=== PATIENT | female | born 1960 | race Caucasian/White ===

== ENCOUNTER 2016-11-27 21:22 | Emergency (ER) | payer BC ==
[2016-11-27] MEDS ORDERED: HYDROmorphone 1 MG/ML Syringe IVPUSH ONE ×2 (21:35→22:44)
[2016-11-27] MEDS ORDERED: Sodium Chloride 0.9% 1,000 ML IV ONE (21:35)
[2016-11-27] MEDS ORDERED: diphenhydrAMINE 50 MG/ML SDV IVPUSH ONE (21:36)
[2016-11-27] MEDS ORDERED: Promethazine 25 MG/ML SDV IM ONE (21:36)
--- NOTE | 2016-11-27 21:43 | EDM.PDOC ---
Addendum entered and electronically signed by Chadnni Holly PA-C 11/28/16 06:18: Agree with patient assessment, documentation and treatment plan. Original Note: ED HPI HEADACHE COMPLAINT - General Chief Complaint: Headache Stated Complaint: MIGRAINE Time Seen by Provider: 11/27/16 21:39 Source of Information: Reports: Patient History Limitations: Reports: No limitations - History of Present Illness INITIAL COMMENTS - FREE TEXT/NARRATIVE: Harmony Ferguson is a 56 year old female with a history of recurrent migraine headaches presenting to the ED with her usual type migraine headache. It started last night and has gotten progressively worse. She is nauseated and has vomited several times. It has not been responsive to her home treatments. She has pain throughout her head. No vision changes but she is light and sound sensitive. She is nauseated and dry heaving here in the ED. She has allergies to toradol but typically gets relief from dilaudid and phenergan. - Related Data Allergies/ADRs: Allergies Allergy/AdvReac Type Severity Reaction Status Date / Time amoxicillin [Amoxicillin] Allergy Rash Verified 11/27/16 21:33 codeine Allergy Abdominal Verified 11/27/16 21:33 Pain ketorolac tromethamine Allergy Itching Verified 11/27/16 21:33 [From Toradol] Sulfa (Sulfonamide Allergy Itching Verified 11/27/16 21:33 Antibiotics) Home Meds: Home Meds Atenolol [Tenormin] 50 mg PO DAILY 12/07/13 [History] Losartan Potassium 25 mg PO BID 12/07/13 [History] Tnpbo-5-[id number] Ethyl Esters [Lovaza] 2,000 mg PO BID 12/07/13 [History] Topiramate [Topamax] 100 mg PO BID 12/07/13 [History] Venlafaxine HCl [Venlafaxine ER] 150 mg PO DAILY 12/07/13 [History] metFORMIN [Glucophage] 500 mg PO BID 12/07/13 [History] Dihydroergotamine [Dhe 45] 1 mg SUBCUT ONETIME PRN 10/05/14 [History] Acetaminophen/Caffeine [Excedrin Tension Headache] 2 tab PO Q6HR PRN 11/23/14 [ History] Onabotulinumtoxina [Botox Cosmetic] 50 unit IM ASDIRECTED 11/23/14 [History] LORazepam [Ativan] 1 mg PO ASDIRECTED 03/01/15 [History] SUMAtriptan Succ/Naproxen Sod [Treximet 85-500 mg Tablet] 1 each PO ASDIRECTED 01/05/16 [History] ZOLMitriptan [Zomig] 5 mg NS ASDIRECTED 01/28/16 [History] Past Medical History HEENT History: Reports: Other (see below) Other HEENT History: Migraine Cardiovascular History: Reports: Hypertension Respiratory History: Reports: None Gastrointestinal History: Reports: Cholelithiasis Genitourinary History: Reports: Renal calculus 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 Neurological History: Reports: Migraines Other Neuro History: botox injections for migraines and nerve blocks Psychiatric History: Reports: Addiction, Anxiety Endocrine/Metabolic History: Reports: Diabetes, type II Hematologic History: Reports: None Immunologic History: Reports: None Oncologic (Cancer) History: Reports: None - Past Surgical History Head Surgeries/Procedures: Reports: None HEENT Surgical History: Reports: Tonsillectomy GI Surgical History: Reports: Cholecystectomy Female Surgical History: Reports: Other (see below) Other Female Surgeries/Procedures: breast reduction Social & Family History - Family History Family Medical History: Noncontributory HEENT: Reports: None Cardiac: Reports: None Respiratory: Reports: None GI: Reports: None Endocrine/Metabolic: Reports: Diabetes, type II Other Endocrine/Metabolic Family History: Parents, both Immunologic: Reports: None Dermatologic: Reports: None Oncologic: Reports: None - Tobacco Use Smoking Status *Q: Current Every Day Smoker Years of Tobacco use: 10 Packs/Tins Daily: 0.5 Used Tobacco, but Quit: No Second Hand Smoke Exposure: Yes - Caffeine Use Caffeine Use: Reports: Coffee - Alcohol Use Days Per Week of Alcohol Use: 0 Number of Drinks Per Day: 1 Total Drinks Per Week: 0 - Recreational Drug Use Recreational Drug Use: No - Living Situation & Occupation Living situation: Reports: Occupation: employed ED ROS GENERAL - Review of Systems Review Of Systems: ROS reveals no pertinent complaints other than HPI. - Physical Exam Exam: See Below Exam Limited By: Other (limited by pain and nausea) General Appearance: alert, moderate distress (due to nausea, vomiting, and headache pain) Eye Exam: bilateral eye: PERRL Throat/Mouth: Normal inspection, Normal oropharynx Head Exam: atraumatic, normocephalic Neck: normal inspection Respiratory/Chest: no respiratory distress, lungs clear, normal breath sounds. No: respiratory distress, crackles, rales, rhonchi, wheezing Cardiovascular: other (regular rhythm with a tachy rate) GI/Abdominal: normal bowel sounds, soft, non tender Neuro Exam (Abbreviated): alert, oriented, CN II-XII intact, normal cognition, normal gait Course - Vital Signs Last Recorded V/S: Last Vital Signs Temp 96.5 F 11/27/16 21:26 Pulse 77 11/27/16 21:26 Resp 14 11/27/16 21:26 BP 148/128 H 11/27/16 21:26 Pulse Ox 99 11/27/16 21:26 - Orders/Labs/Meds Meds: Medications Discontinued Medications Generic Name Dose Route Start Last Admin Trade Name Freq PRN Reason Stop Dose Admin Diphenhydramine HCl 25 mg 11/27/16 21:36 11/27/16 21:46 Benadryl IVPUSH 11/27/16 21:37 25 mg ONETIME ONE Administration Hydromorphone HCl 1 mg 11/27/16 21:35 11/27/16 21:48 Dilaudid IVPUSH 11/27/16 21:36 1 mg ONETIME ONE Administration Hydromorphone HCl 0.5 mg 11/27/16 22:44 11/27/16 22:49 Dilaudid IVPUSH 11/27/16 22:45 0.5 mg ONETIME ONE Administration Sodium Chloride 1,000 mls @ 999 mls/hr 11/27/16 21:35 11/27/16 21:41 Normal Saline IV 11/27/16 22:35 999 mls/hr .BOLUS ONE Administration Promethazine HCl 25 mg 11/27/16 21:36 11/27/16 21:45 Phenergan IM 11/27/16 21:37 25 mg ONETIME ONE Administration - Re-Assessments/Exams Free Text/Narrative Re-Assessment/Exam: IV access obtained. Dilaudid IV, NS bolus 1 liter, IM phenergan, and IV Benadryl ordered. Room was darkened. 11/27/16 21:42 Free Text/Narrative Re-Assessment/Exam: Patient had improvement of pain with Dilaudid but continues to have severe pain ; another 0.5 Dilaudid ordered 11/27/16 23:08 Departure - Departure Time of Disposition: 23:09 Disposition: Home, Self-Care 01 Condition: good Clinical Impression: Migraine Instructions: Recurrent Migraine Headache, [id number] Forms: ED Department Discharge Additional Instructions: Please follow-up with neurology as planned for recurrent migraine headaches - Assessment/Plan Assessment:: migraine headache Plan: Harmony responded to the interventions performed in the ER with improvement in her migraine headache pain. Imaging and labs were not performed as the patient has an extensive history of migraine and this is consistent with her usual migraine presentation. She plans to follow-up with neurology soon to restart Botox injections. Questions were answered and the patient was comfortable with the above plan. She was discharged to home in improved condition.
[2016-11-27 23:11] VITALS: BP 108/73
== END 2016-11-27 23:17 | disposition home or self-care (01) ==
LOC: DL.ED 21:22
DX: G43.909 Migraine, unspecified, not intractable, without status migrainosus (principal); I10 Essential (primary) hypertension; E11.9 Type 2 diabetes mellitus without complications; F41.9 Anxiety disorder, unspecified; F17.210 Nicotine dependence, cigarettes, uncomplicated; Z90.49 Acquired absence of other specified parts of digestive tract; Z88.5 Allergy status to narcotic agent; Z88.2 Allergy status to sulfonamides; Z79.84 Long term (current) use of oral hypoglycemic drugs; Z79.899 Other long term (current) drug therapy; Z90.710 Acquired absence of both cervix and uterus; Z98.890 Other specified postprocedural states; Z88.1 Allergy status to other antibiotic agents
CPT/HCPCS: 96365; 96372; 96375; 99283; J1170; J1200; J2550; J7030

== ENCOUNTER 2016-12-27 19:57 | Emergency (ER) | payer BC ==
[2016-12-27] MEDS ORDERED: Promethazine 25 MG/ML SDV IM ONE (20:16)
[2016-12-27] MEDS ORDERED: HYDROmorphone 1 MG/ML Syringe IM ONE (20:16)
--- NOTE | 2016-12-27 20:19 | EDM.PDOC ---
[id number] MIGRAINE [id number] Time Seen by Provider: 12/27/16 20:17 Source of Information: Reports: Patient History Limitations: Reports: No Limitations - History of Present Illness INITIAL COMMENTS - FREE TEXT/NARRATIVE: c/o recurrent migraine Headache Pain Score (Numeric/FACES): 9 - Related Data Allergies Allergy/AdvReac Type Severity Reaction Status Date / Time amoxicillin [Amoxicillin] Allergy Rash Verified 12/27/16 20:07 codeine Allergy Abdominal Verified 12/27/16 20:07 Pain ketorolac tromethamine Allergy Itching Verified 12/27/16 20:07 [From Toradol] Sulfa (Sulfonamide Allergy Itching Verified 12/27/16 20:07 Antibiotics) Home Meds: Home Meds Atenolol [Tenormin] 50 mg PO DAILY 12/07/13 [History] Losartan Potassium 25 mg PO BID 12/07/13 [History] Aoozt-3-[id number] Ethyl Esters [Lovaza] 2,000 mg PO BID 12/07/13 [History] Topiramate [Topamax] 100 mg PO BID 12/07/13 [History] Venlafaxine HCl [Venlafaxine ER] 150 mg PO DAILY 12/07/13 [History] metFORMIN [Glucophage] 500 mg PO BID 12/07/13 [History] Dihydroergotamine [Dhe 45] 1 mg SUBCUT ONETIME PRN 10/05/14 [History] Acetaminophen/Caffeine [Excedrin Tension Headache] 2 tab PO Q6HR PRN 11/23/14 [ History] Onabotulinumtoxina [Botox Cosmetic] 50 unit IM ASDIRECTED 11/23/14 [History] LORazepam [Ativan] 1 mg PO ASDIRECTED 03/01/15 [History] SUMAtriptan Succ/Naproxen Sod [Treximet 85-500 mg Tablet] 1 each PO ASDIRECTED 01/05/16 [History] ZOLMitriptan [Zomig] 5 mg NS ASDIRECTED 01/28/16 [History] Past Medical History HEENT History: Reports: Other (See Below) Other HEENT History: Migraine Cardiovascular History: Reports: Hypertension Respiratory History: Reports: None Gastrointestinal History: Reports: Cholelithiasis Genitourinary History: Reports: Renal Calculus 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 Neurological History: Reports: Migraines Other Neuro History: botox injections for migraines and nerve blocks Psychiatric History: Reports: Addiction, Anxiety Endocrine/Metabolic History: Reports: Diabetes, Type II Hematologic History: Reports: None Immunologic History: Reports: None Oncologic (Cancer) History: Reports: None - Past Surgical History Female Surgical History: Reports: Other (See Below) Social & Family History - Family History Family Medical History: Noncontributory HEENT: Reports: None Cardiac: Reports: None Respiratory: Reports: None GI: Reports: None Endocrine/Metabolic: Reports: Diabetes, type II Other Endocrine/Metabolic Family History: Parents, both Immunologic: Reports: None Dermatologic: Reports: None Oncologic: Reports: None - Tobacco Use Smoking Status *Q: Current Every Day Smoker Years of Tobacco use: 10 Packs/Tins Daily: 0.5 Used Tobacco, but Quit: No Second Hand Smoke Exposure: Yes - Caffeine Use Caffeine Use: Reports: Coffee - Alcohol Use Days Per Week of Alcohol Use: 0 Number of Drinks Per Day: 1 Total Drinks Per Week: 0 - Recreational Drug Use Recreational Drug Use: No - Living Situation & Occupation Living situation: Reports: Occupation: Employed ED ROS GENERAL - Review of Systems Review Of Systems: ROS reveals no pertinent complaints other than HPI. - Physical Exam Exam: See Below Exam Limited By: No Limitations General Appearance: Alert, WD/WN, Mild Distress, Other (crying) Eye Exam: Bilateral Eye: PERRL (pupils ER @ 4mm) Ears: Hearing Grossly Normal Throat/Mouth: Normal Voice, No Airway Compromise Head Exam: Atraumatic Neck: Non-Tender, Full Range of Motion Respiratory/Chest: No Respiratory Distress Cardiovascular: Regular Rate, Rhythm GI/Abdominal: Soft, Non-Tender Neuro Exam (Abbreviated): Normal Cognition, Normal Gait, Normal Reflexes, No Motor/Sensory Deficits Psychiatric: Tearful Skin Exam: Warm, Dry Course - Vital Signs Last Recorded V/S: Last Vital Signs Temp 36.3 C 12/27/16 20:00 Pulse 76 12/27/16 20:50 Resp 15 12/27/16 20:50 BP 130/75 12/27/16 20:50 Pulse Ox 96 12/27/16 20:50 - Orders/Labs/Meds Meds: Medications Discontinued Medications Generic Name Dose Route Start Last Admin Trade Name Wallace PRNydia Reason Stop Dose Admin Butorphanol Tartrate 2 mg 12/27/16 21:16 12/27/16 21:25 Stadol IM 12/27/16 21:17 2 mg ONETIME ONE Administration Hydromorphone HCl 1 mg 12/27/16 20:16 12/27/16 20:26 Dilaudid IM 12/27/16 20:17 1 mg ONETIME ONE Administration Metoclopramide HCl 10 mg 12/27/16 21:16 12/27/16 21:28 Reglan IM 12/27/16 21:17 10 mg ONETIME ONE Administration Promethazine HCl 25 mg 12/27/16 20:16 12/27/16 20:24 Phenergan IM 12/27/16 20:17 25 mg ONETIME ONE Administration Departure - Departure Time of Disposition: 21:35 Disposition: Home, Self-Care 01 Condition: good Clinical Impression: Headache, migraine, intractable Qualifiers: Migraine type: without aura Status migrainosus presence: without status migrainosus Qualified Code(s): G43.019 - Migraine without aura, intractable, without status migrainosus - Discharge Information Instructions: Recurrent Migraine Headache, [id number] Referrals: Vanda Baez PA [Primary Care Provider] - Forms: ED Department Discharge Additional Instructions: 1) rest 2) follow up at clinic or recheck as needed
[2016-12-27] MEDS ORDERED: Metoclopramide 10 MG/2 ML SDV IM ONE (21:16)
[2016-12-27] MEDS ORDERED: Butorphanol 2 MG/ML SDV IM ONE (21:16)
[2016-12-27 21:31] VITALS: BP 130/75
== END 2016-12-27 21:35 | disposition home or self-care (01) ==
LOC: DL.ED 19:57
DX: G43.019 Migraine without aura, intractable, without status migrainosus (principal); I10 Essential (primary) hypertension; F41.9 Anxiety disorder, unspecified; F17.210 Nicotine dependence, cigarettes, uncomplicated; E11.9 Type 2 diabetes mellitus without complications; Z88.1 Allergy status to other antibiotic agents; Z88.2 Allergy status to sulfonamides; Z88.8 Allergy status to other drugs, medicaments and biological substances; Z90.710 Acquired absence of both cervix and uterus; Z79.899 Other long term (current) drug therapy
CPT/HCPCS: 96372; 99283; J0595; J1170; J2550; J2765

== ENCOUNTER 2017-03-17 19:21 | Emergency (ER) | payer BC ==
[2017-03-17] MEDS ORDERED: Metoclopramide 10 MG/2 ML SDV IM ONE (20:16)
[2017-03-17] MEDS ORDERED: HYDROmorphone 1 MG/ML Syringe IM ONE (20:16)
[2017-03-17] MEDS ORDERED: Promethazine 25 MG/ML SDV IM ONE (20:16)
--- NOTE | 2017-03-17 20:18 | EDM.PDOC ---
ED HPI GENERAL MEDICAL PROBLEM - General Chief Complaint: Headache Stated Complaint: SEVERE MIGRAINE, [id number] Time Seen by Provider: 03/17/17 20:17 Source of Information: Reports: Patient History Limitations: Reports: No Limitations - History of Present Illness INITIAL COMMENTS - FREE TEXT/NARRATIVE: c/o recurrent h/o migraine. Head Pain Score (Numeric/FACES): 8 - Related Data Allergies Allergy/AdvReac Type Severity Reaction Status Date / Time amoxicillin [Amoxicillin] Allergy Rash Verified 03/17/17 19:32 codeine Allergy Abdominal Verified 03/17/17 19:32 Pain ketorolac tromethamine Allergy Itching Verified 03/17/17 19:32 [From Toradol] Sulfa (Sulfonamide Allergy Itching Verified 03/17/17 19:32 Antibiotics) Home Meds: Home Meds Atenolol [Tenormin] 50 mg PO DAILY 12/07/13 [History] Losartan Potassium 25 mg PO BID 12/07/13 [History] Czdue-4-Aujd Ethyl Esters [Lovaza] 2,000 mg PO BID 12/07/13 [History] Topiramate [Topamax] 100 mg PO BID 12/07/13 [History] Venlafaxine HCl [Venlafaxine ER] 150 mg PO DAILY 12/07/13 [History] metFORMIN [Glucophage] 500 mg PO BID 12/07/13 [History] Dihydroergotamine [Dhe 45] 1 mg SUBCUT ONETIME PRN 10/05/14 [History] Acetaminophen/Caffeine [Excedrin Tension Headache] 2 tab PO Q6HR PRN 11/23/14 [ History] Onabotulinumtoxina [Botox Cosmetic] 50 unit IM ASDIRECTED 11/23/14 [History] LORazepam [Ativan] 1 mg PO ASDIRECTED 03/01/15 [History] SUMAtriptan Succ/Naproxen Sod [Treximet 85-500 mg Tablet] 1 each PO ASDIRECTED 01/05/16 [History] ZOLMitriptan [Zomig] 5 mg NS ASDIRECTED 01/28/16 [History] Rosuvastatin [Crestor] 1 tab PO BEDTIME 03/17/17 [History] Past Medical History HEENT History: Reports: Other (See Below) Other HEENT History: Migraine Cardiovascular History: Reports: Hypertension Respiratory History: Reports: None Gastrointestinal History: Reports: Cholelithiasis Genitourinary History: Reports: Renal Calculus 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 Neurological History: Reports: Migraines Other Neuro History: botox injections for migraines and nerve blocks Psychiatric History: Reports: Addiction, Anxiety Endocrine/Metabolic History: Reports: Diabetes, Type II Hematologic History: Reports: None Immunologic History: Reports: None Oncologic (Cancer) History: Reports: None - Infectious Disease History Infectious Disease History: Reports: Chicken Pox, Mumps - Past Surgical History Head Surgeries/Procedures: Reports: None HEENT Surgical History: Reports: Adenoidectomy, Tonsillectomy GI Surgical History: Reports: Cholecystectomy Female Surgical History: Reports: Breast Reduction, Hysterectomy, Tubal Ligation Social & Family History - Family History Family Medical History: Noncontributory HEENT: Reports: None Cardiac: Reports: Bypass, CAD, Heart Failure, [place] Respiratory: Reports: None GI: Reports: None Endocrine/Metabolic: Reports: Diabetes, type II Other Endocrine/Metabolic Family History: Parents, both Immunologic: Reports: None Dermatologic: Reports: None Oncologic: Reports: Breast, Other (See Below) Other Oncologic Family History: larynx - Tobacco Use Smoking Status *Q: Current Every Day Smoker Years of Tobacco use: 10 Packs/Tins Daily: 0.5 Used Tobacco, but Quit: No Second Hand Smoke Exposure: Yes - Caffeine Use Caffeine Use: Reports: Coffee - Alcohol Use Days Per Week of Alcohol Use: 0 Number of Drinks Per Day: 1 Total Drinks Per Week: 0 - Recreational Drug Use Recreational Drug Use: No - Living Situation & Occupation Living situation: Reports: Occupation: Employed ED ROS GENERAL - Review of Systems Review Of Systems: ROS reveals no pertinent complaints other than HPI. - Physical Exam Exam: See Below Exam Limited By: No Limitations General Appearance: Alert, WD/WN, Mild Distress, Other (headache) Eye Exam: Bilateral Eye: PERRL (pupils ER @ 4mm) Ears: Hearing Grossly Normal Throat/Mouth: Normal Voice, No Airway Compromise Head Exam: Atraumatic Neck: Non-Tender, Full Range of Motion Respiratory/Chest: No Respiratory Distress Cardiovascular: Regular Rate, Rhythm GI/Abdominal: Soft, Non-Tender Neuro Exam (Abbreviated): Alert, Oriented, Normal Cognition, Normal Gait, No Motor/Sensory Deficits Psychiatric: Tearful Skin Exam: Warm, Dry, Normal Color Course - Vital Signs Last Recorded V/S: Last Vital Signs Temp 36.9 C 03/17/17 19:37 Pulse 88 03/17/17 21:10 Resp 18 03/17/17 21:10 BP 126/80 03/17/17 21:10 Pulse Ox 98 03/17/17 21:10 - Orders/Labs/Meds Meds: Medications Discontinued Medications Generic Name Dose Route Start Last Admin Trade Name Wallace PRN Reason Stop Dose Admin Hydromorphone HCl 1 mg 03/17/17 20:16 03/17/17 20:35 Dilaudid IM 03/17/17 20:17 1 mg ONETIME ONE Administration Metoclopramide HCl 10 mg 03/17/17 20:16 03/17/17 20:37 Reglan IM 03/17/17 20:17 10 mg ONETIME ONE Administration Promethazine HCl 25 mg 03/17/17 20:16 03/17/17 20:36 Phenergan IM 03/17/17 20:17 25 mg ONETIME ONE Administration - Re-Assessments/Exams Free Text/Narrative Re-Assessment/Exam: 03/17/17 21:16 re-exam; s/p IM Rx = much better Departure - Departure Time of Disposition: 21:16 Disposition: Home, Self-Care 01 Condition: Good Clinical Impression: Headache, migraine, intractable Qualifiers: Migraine type: without aura Status migrainosus presence: without status migrainosus Qualified Code(s): G43.019 - Migraine without aura, intractable, without status migrainosus - Discharge Information Instructions: Migraine Headache, [id number] Forms: ED Department Discharge Additional Instructions: 1) rest 2) follow up at clinic or recheck as needed
[2017-03-17 21:13] VITALS: BP 126/80
== END 2017-03-17 21:28 | disposition home or self-care (01) ==
LOC: DL.ED 19:21
DX: G43.019 Migraine without aura, intractable, without status migrainosus (principal); E11.9 Type 2 diabetes mellitus without complications; F17.210 Nicotine dependence, cigarettes, uncomplicated; Z79.84 Long term (current) use of oral hypoglycemic drugs; Z95.1 Presence of aortocoronary bypass graft; Z85.3 Personal history of malignant neoplasm of breast; Z79.899 Other long term (current) drug therapy; Z88.5 Allergy status to narcotic agent; Z88.1 Allergy status to other antibiotic agents; Z88.2 Allergy status to sulfonamides; Z88.6 Allergy status to analgesic agent; Z90.710 Acquired absence of both cervix and uterus
CPT/HCPCS: 96372; 99283; J1170; J2550; J2765

== ENCOUNTER 2017-04-23 18:16 | Emergency (ER) | payer BC ==
[2017-04-23] MEDS ORDERED: Sodium Chloride 0.9% 1,000 ML IV ONE (21:02)
[2017-04-23] MEDS ORDERED: Promethazine 25 MG Tab PO ONE (21:06)
[2017-04-23] MEDS ORDERED: HYDROmorphone 1 MG/ML Syringe IVPUSH ONE ×2 (21:06→21:45)
--- NOTE | 2017-04-23 21:48 | EDM.PDOC ---
ED HPI GENERAL MEDICAL PROBLEM - General Chief Complaint: Headache Stated Complaint: MIGRAINE, [id number] Time Seen by Provider: 04/23/17 20:50 Source of Information: Reports: Patient History Limitations: Reports: No Limitations - History of Present Illness INITIAL COMMENTS - FREE TEXT/NARRATIVE: C/o of usual migraine, started 10 days ago. Has been trying usual home medications without improvement in pain. Sensitive to light, nauseated, vomiting last night. Tolerating few liquids today. Unable to sleep due to discomfort or lie down. Headache behind eyes radiating to back of head Duration: Day(s): Location: Reports: Head Headache Pain Score (Numeric/FACES): 9 - Related Data Allergies Allergy/AdvReac Type Severity Reaction Status Date / Time amoxicillin [Amoxicillin] Allergy Rash Verified 04/23/17 18:23 codeine Allergy Abdominal Verified 04/23/17 18:23 Pain ketorolac tromethamine Allergy Itching Verified 04/23/17 18:23 [From Toradol] Sulfa (Sulfonamide Allergy Itching Verified 04/23/17 18:23 Antibiotics) Home Meds: Home Meds Atenolol [Tenormin] 50 mg PO DAILY 12/07/13 [History] Losartan Potassium 25 mg PO BID 12/07/13 [History] Uyxdk-0-Egaa Ethyl Esters [Lovaza] 2,000 mg PO BID 12/07/13 [History] Topiramate [Topamax] 100 mg PO BID 12/07/13 [History] Venlafaxine HCl [Venlafaxine ER] 150 mg PO DAILY 12/07/13 [History] metFORMIN [Glucophage] 500 mg PO BID 12/07/13 [History] Dihydroergotamine [Dhe 45] 1 mg SUBCUT ONETIME PRN 10/05/14 [History] Acetaminophen/Caffeine [Excedrin Tension Headache] 2 tab PO Q6HR PRN 11/23/14 [ History] Onabotulinumtoxina [Botox Cosmetic] 50 unit IM ASDIRECTED 11/23/14 [History] LORazepam [Ativan] 1 mg PO ASDIRECTED 03/01/15 [History] SUMAtriptan Succ/Naproxen Sod [Treximet 85-500 mg Tablet] 1 each PO ASDIRECTED 01/05/16 [History] ZOLMitriptan [Zomig] 5 mg NS ASDIRECTED 01/28/16 [History] Rosuvastatin [Crestor] 1 tab PO BEDTIME 03/17/17 [History] Past Medical History HEENT History: Reports: Other (See Below) Other HEENT History: Migraine Cardiovascular History: Reports: Hypertension Respiratory History: Reports: None Gastrointestinal History: Reports: Cholelithiasis Genitourinary History: Reports: Renal Calculus 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 Neurological History: Reports: Migraines Other Neuro History: botox injections for migraines and nerve blocks Psychiatric History: Reports: Addiction, Anxiety Endocrine/Metabolic History: Reports: Diabetes, Type II Hematologic History: Reports: None Immunologic History: Reports: None Oncologic (Cancer) History: Reports: None - Infectious Disease History Infectious Disease History: Reports: Chicken Pox, Mumps - Past Surgical History Head Surgeries/Procedures: Reports: None HEENT Surgical History: Reports: Adenoidectomy, Tonsillectomy GI Surgical History: Reports: Cholecystectomy Female Surgical History: Reports: Breast Reduction, Hysterectomy, Tubal Ligation Social & Family History - Family History Family Medical History: Noncontributory HEENT: Reports: None Cardiac: Reports: Bypass, CAD, Heart Failure, [place] Respiratory: Reports: None GI: Reports: None Endocrine/Metabolic: Reports: Diabetes, type II Other Endocrine/Metabolic Family History: Parents, both Immunologic: Reports: None Dermatologic: Reports: None Oncologic: Reports: Breast, Other (See Below) Other Oncologic Family History: larynx - Tobacco Use Smoking Status *Q: Current Every Day Smoker Years of Tobacco use: 6 Packs/Tins Daily: 0.5 Used Tobacco, but Quit: No Second Hand Smoke Exposure: Yes - Caffeine Use Caffeine Use: Reports: Coffee - Alcohol Use Days Per Week of Alcohol Use: 0 Number of Drinks Per Day: 1 Total Drinks Per Week: 0 - Recreational Drug Use Recreational Drug Use: No - Living Situation & Occupation Living situation: Reports: Occupation: Employed ED ROS GENERAL - Review of Systems Review Of Systems: ROS reveals no pertinent complaints other than HPI. - Physical Exam Exam: See Below Exam Limited By: No Limitations General Appearance: Alert, Moderate Distress Eye Exam: Bilateral Eye: EOMI, PERRL, Vision Changes (photophobia) Ears: Normal External Exam, Normal TMs Nose: Normal Inspection Throat/Mouth: Normal Inspection Head Exam: Atraumatic, Normocephalic Neck: Normal Inspection, Full Range of Motion Respiratory/Chest: No Respiratory Distress, Lungs Clear Cardiovascular: Normal Peripheral Pulses, Regular Rate, Rhythm GI/Abdominal: Soft Neuro Exam (Abbreviated): Alert, Oriented, Normal Cognition, Normal Gait, No Motor/Sensory Deficits Extremities: Normal Inspection Psychiatric: Normal Affect, Normal Mood Skin Exam: Warm, Dry, Intact, Normal Color Course - Vital Signs Last Recorded V/S: Last Vital Signs Temp 97.6 F 04/23/17 22:03 Pulse 77 04/23/17 22:03 Resp 18 04/23/17 22:03 BP 140/81 04/23/17 22:03 Pulse Ox 95 04/23/17 22:03 - Orders/Labs/Meds Meds: Medications Discontinued Medications Generic Name Dose Route Start Last Admin Trade Name Evinq PRN Reason Stop Dose Admin Hydromorphone HCl 1 mg 04/23/17 21:06 04/23/17 21:14 Dilaudid IVPUSH 04/23/17 21:07 1 mg ONETIME ONE Administration Hydromorphone HCl 1 mg 04/23/17 21:45 04/23/17 21:50 Dilaudid IVPUSH 04/23/17 21:46 1 mg ONETIME ONE Administration Sodium Chloride 1,000 mls @ 999 mls/hr 04/23/17 21:02 04/23/17 21:11 Normal Saline IV 04/23/17 22:02 999 mls/hr .BOLUS ONE Administration Promethazine HCl 25 mg 04/23/17 21:06 04/23/17 21:11 Phenergan PO 04/23/17 21:07 25 mg ONETIME ONE Administration - Re-Assessments/Exams Free Text/Narrative Re-Assessment/Exam: 04/24/17 06:12 headache improved following 2 mg dilaudid. Departure - Departure Time of Disposition: 21:46 Disposition: Home, Self-Care 01 Condition: Fair Clinical Impression: Migraine Qualifiers: Migraine type: unspecified Status migrainosus presence: without status migrainosus Intractability: not intractable Qualified Code(s): G43.909 - Migraine, unspecified, not intractable, without status migrainosus - Discharge Information Forms: ED Department Discharge Additional Instructions: resume home medications rest
[2017-04-23 22:04] VITALS: BP 140/81
== END 2017-04-23 22:10 | disposition home or self-care (01) ==
LOC: DL.ED 18:16
DX: G43.909 Migraine, unspecified, not intractable, without status migrainosus (principal); I10 Essential (primary) hypertension; F41.9 Anxiety disorder, unspecified; E11.9 Type 2 diabetes mellitus without complications; F17.210 Nicotine dependence, cigarettes, uncomplicated; Z88.1 Allergy status to other antibiotic agents; Z88.2 Allergy status to sulfonamides; Z88.8 Allergy status to other drugs, medicaments and biological substances
CPT/HCPCS: 96361; 96374; 96376; 99283; A9270; J1170; J7030

== ENCOUNTER 2017-06-04 18:04 | Emergency (ER) | payer BC | END 2017-06-04 19:25 | disposition left against medical advice (07) | LOC: DL.ED 18:04 | DX: Z53.21 Procedure and treatment not carried out due to patient leaving prior to being seen by health care provider (principal) ==

== ENCOUNTER 2017-07-30 19:07 | Emergency (ER) | payer BC ==
[2017-07-30 19:19] VITALS: BP 148/90
[2017-07-30] MEDS ORDERED: Promethazine 25 MG/ML SDV IM ONE (19:26)
--- NOTE | 2017-07-30 19:26 | EDM.PDOC ---
ED HPI GENERAL MEDICAL PROBLEM - General Chief Complaint: Headache Stated Complaint: MIGRAINE, [id number] Time Seen by Provider: 07/30/17 19:21 Source of Information: Reports: Patient History Limitations: Reports: No Limitations - History of Present Illness INITIAL COMMENTS - FREE TEXT/NARRATIVE: Migraine headache onnd off for past 2 weeks, Today worse, decreased appetite. No vomiting, able to tolerate liquids and reports drinking lots today. Pain in same area, no change from usual rating pain 10/10 tonight. Has tried usual home migraine medications without relief. Last Botox injection first part of this month. 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: Other (see below) Other Treatments AUTOCAD TECHNICIAN: migraine medications Headache Pain Score (Numeric/FACES): 10 - Related Data Allergies Allergy/AdvReac Type Severity Reaction Status Date / Time amoxicillin [Amoxicillin] Allergy Rash Verified 07/30/17 19:13 codeine Allergy Abdominal Verified 07/30/17 19:13 Pain ketorolac tromethamine Allergy Itching Verified 07/30/17 19:13 [From Toradol] Sulfa (Sulfonamide Allergy Itching Verified 07/30/17 19:13 Antibiotics) Home Meds: Home Meds Atenolol [Tenormin] 50 mg PO DAILY 12/07/13 [History] Losartan Potassium 25 mg PO BID 12/07/13 [History] [id number]-[id number] Ethyl Esters [Lovaza] 2,000 mg PO BID 12/07/13 [History] Topiramate [Topamax] 100 mg PO BID 12/07/13 [History] Venlafaxine HCl [Venlafaxine ER] 150 mg PO DAILY 12/07/13 [History] metFORMIN [Glucophage] 500 mg PO BID 12/07/13 [History] Dihydroergotamine [Dhe 45] 1 mg SUBCUT ONETIME PRN 10/05/14 [History] Acetaminophen/Caffeine [Excedrin Tension Headache] 2 tab PO Q6HR PRN 11/23/14 [ History] Onabotulinumtoxina [Botox Cosmetic] 50 unit IM ASDIRECTED 11/23/14 [History] LORazepam [Ativan] 1 mg PO ASDIRECTED 03/01/15 [History] SUMAtriptan Succ/Naproxen Sod [Treximet 85-500 mg Tablet] 1 each PO ASDIRECTED 01/05/16 [History] ZOLMitriptan [Zomig] 5 mg NS ASDIRECTED 01/28/16 [History] Rosuvastatin [Crestor] 1 tab PO BEDTIME 03/17/17 [History] Past Medical History HEENT History: Reports: Other (See Below) Other HEENT History: Migraine Cardiovascular History: Reports: Hypertension Respiratory History: Reports: None Gastrointestinal History: Reports: Cholelithiasis Genitourinary History: Reports: Renal Calculus 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 Neurological History: Reports: Migraines Other Neuro History: botox injections for migraines and nerve blocks Psychiatric History: Reports: Addiction, Anxiety Endocrine/Metabolic History: Reports: Diabetes, Type II Hematologic History: Reports: None Immunologic History: Reports: None Oncologic (Cancer) History: Reports: None - Infectious Disease History Infectious Disease History: Reports: Chicken Pox, Mumps - Past Surgical History Head Surgeries/Procedures: Reports: None HEENT Surgical History: Reports: Adenoidectomy, Tonsillectomy GI Surgical History: Reports: Cholecystectomy Female Surgical History: Reports: Breast Reduction, Hysterectomy, Tubal Ligation Social & Family History - Family History Family Medical History: Noncontributory HEENT: Reports: None Cardiac: Reports: Bypass, CAD, Heart Failure, [place] Respiratory: Reports: None GI: Reports: None Endocrine/Metabolic: Reports: Diabetes, type II Other Endocrine/Metabolic Family History: Parents, both Immunologic: Reports: None Dermatologic: Reports: None Oncologic: Reports: Breast, Other (See Below) Other Oncologic Family History: larynx - Tobacco Use Smoking Status *Q: Current Some Day Smoker Years of Tobacco use: 34 Packs/Tins Daily: 0.1 Used Tobacco, but Quit: No Second Hand Smoke Exposure: No - Caffeine Use Caffeine Use: Reports: Coffee - Alcohol Use Days Per Week of Alcohol Use: 0 Number of Drinks Per Day: 1 Total Drinks Per Week: 0 - Recreational Drug Use Recreational Drug Use: No - Living Situation & Occupation Living situation: Reports: Occupation: Employed ED ROS GENERAL - Review of Systems Review Of Systems: ROS reveals no pertinent complaints other than HPI. Constitutional: Reports: Decreased Appetite - Physical Exam Exam: See Below Exam Limited By: Language Barrier General Appearance: Alert, Mild Distress Eye Exam: Bilateral Eye: EOMI, Globe Laceration, PERRL Ears: Normal External Exam, Normal TMs Nose: Normal Inspection Throat/Mouth: Normal Inspection Head Exam: Atraumatic, Normocephalic Neck: Limited Range of Motion Respiratory/Chest: No Respiratory Distress, Lungs Clear, Normal Breath Sounds Cardiovascular: Normal Peripheral Pulses, Regular Rate, Rhythm GI/Abdominal: Normal Bowel Sounds, Soft Neuro Exam (Abbreviated): Alert, Normal Cognition, No Motor/Sensory Deficits Extremities: Normal Inspection, Normal Range of Motion Psychiatric: Normal Affect Skin Exam: Warm, Dry, Intact, Normal Color, No Rash Course - Vital Signs Last Recorded V/S: Last Vital Signs Temp 98.1 F 07/30/17 19:17 Pulse 78 07/30/17 19:17 Resp 18 07/30/17 19:17 BP 148/90 H 07/30/17 19:17 Pulse Ox 100 07/30/17 19:17 - Orders/Labs/Meds Meds: Medications Discontinued Medications Generic Name Dose Route Start Last Admin Trade Name Wallace PRNydia Reason Stop Dose Admin Hydromorphone HCl 1 mg 07/30/17 19:27 07/30/17 19:31 Dilaudid IM 07/30/17 19:28 1 mg ONETIME ONE Administration Hydromorphone HCl 1 mg 07/30/17 20:00 07/30/17 20:05 Dilaudid IM 07/30/17 20:01 1 mg ONETIME ONE Administration Promethazine HCl 25 mg 07/30/17 19:26 07/30/17 19:31 Phenergan IM 07/30/17 19:27 25 mg ONETIME ONE Administration Departure - Departure Time of Disposition: 20:25 Disposition: Home, Self-Care 01 Condition: Fair Clinical Impression: Migraine - Discharge Information Instructions: Recurrent Migraine Headache, [id number] Referrals: Vanda Baez PA [Primary Care Provider] - Forms: ED Department Discharge Additional Instructions: rest avoid triggers increase fluids follow up with primary care as needed
[2017-07-30] MEDS ORDERED: HYDROmorphone 1 MG/ML Syringe IM ONE ×2 (19:27→20:00)
== END 2017-07-30 20:22 | disposition home or self-care (01) ==
LOC: EEVIPCON 19:07 → DL.ED 19:07
DX: G43.909 Migraine, unspecified, not intractable, without status migrainosus (principal); I10 Essential (primary) hypertension; E11.9 Type 2 diabetes mellitus without complications; F17.210 Nicotine dependence, cigarettes, uncomplicated; Z88.1 Allergy status to other antibiotic agents; Z88.5 Allergy status to narcotic agent; Z88.2 Allergy status to sulfonamides; Z88.6 Allergy status to analgesic agent; Z79.899 Other long term (current) drug therapy; Z79.84 Long term (current) use of oral hypoglycemic drugs
CPT/HCPCS: 96374; 96375; 96376; 99283; J1170; J2550

== ENCOUNTER 2017-08-18 19:19 | Emergency (ER) | payer BC ==
[2017-08-18] MEDS ORDERED: Butorphanol 2 MG/ML SDV IM ONE (19:51)
[2017-08-18] MEDS ORDERED: Promethazine 25 MG/ML SDV IM ONE (19:51)
--- NOTE | 2017-08-18 19:57 | EDM.PDOC ---
ED HPI GENERAL MEDICAL PROBLEM - General Chief Complaint: Headache Stated Complaint: MIGRAINE SINCE FRIDAY Time Seen by Provider: 08/18/17 19:52 Source of Information: Reports: Patient History Limitations: Reports: No Limitations - History of Present Illness INITIAL COMMENTS - FREE TEXT/NARRATIVE: c/o recurrent migraine problem. explained to pt re; legality of opiod Rx for chronic problem in ER setting. Headache Pain Score (Numeric/FACES): 8 - Related Data Allergies Allergy/AdvReac Type Severity Reaction Status Date / Time amoxicillin [Amoxicillin] Allergy Rash Verified 08/18/17 19:29 codeine Allergy Abdominal Verified 08/18/17 19:29 Pain ketorolac tromethamine Allergy Itching Verified 08/18/17 19:29 [From Toradol] Sulfa (Sulfonamide Allergy Itching Verified 08/18/17 19:29 Antibiotics) Home Meds: Home Meds Atenolol [Tenormin] 50 mg PO DAILY 12/07/13 [History] Losartan Potassium 25 mg PO BID 12/07/13 [History] Dwvbu-4-Umaa Ethyl Esters [Lovaza] 1,000 mg PO BID 12/07/13 [History] Topiramate [Topamax] 100 mg PO BID 12/07/13 [History] Venlafaxine HCl [Venlafaxine ER] 150 mg PO DAILY 12/07/13 [History] metFORMIN [Glucophage] 500 mg PO BID 12/07/13 [History] Dihydroergotamine [Dhe 45] 1 mg SUBCUT ONETIME PRN 10/05/14 [History] Acetaminophen/Caffeine [Excedrin Tension Headache] 2 tab PO Q6HR PRN 11/23/14 [ History] Onabotulinumtoxina [Botox Cosmetic] 50 unit IM ASDIRECTED 11/23/14 [History] LORazepam [Ativan] 1 mg PO ASDIRECTED 03/01/15 [History] SUMAtriptan Succ/Naproxen Sod [Treximet 85-500 mg Tablet] 1 each PO ASDIRECTED PRN 01/05/16 [History] ZOLMitriptan [Zomig] 5 mg NS ASDIRECTED 01/28/16 [History] Rosuvastatin [Crestor] 1 tab PO BEDTIME 03/17/17 [History] Past Medical History HEENT History: Reports: Other (See Below) Other HEENT History: Migraine Cardiovascular History: Reports: Hypertension Respiratory History: Reports: None Gastrointestinal History: Reports: Cholelithiasis Genitourinary History: Reports: Renal Calculus 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 Neurological History: Reports: Migraines Other Neuro History: botox injections for migraines and nerve blocks Psychiatric History: Reports: Addiction, Anxiety Endocrine/Metabolic History: Reports: Diabetes, Type II Hematologic History: Reports: None Immunologic History: Reports: None Oncologic (Cancer) History: Reports: None - Infectious Disease History Infectious Disease History: Reports: Chicken Pox, Mumps - Past Surgical History Head Surgeries/Procedures: Reports: None HEENT Surgical History: Reports: Adenoidectomy, Tonsillectomy GI Surgical History: Reports: Cholecystectomy Female Surgical History: Reports: Breast Reduction, Hysterectomy, Tubal Ligation Social & Family History - Family History Family Medical History: Noncontributory HEENT: Reports: None Cardiac: Reports: Bypass, CAD, Heart Failure, [place] Respiratory: Reports: None GI: Reports: None Endocrine/Metabolic: Reports: Diabetes, type II Other Endocrine/Metabolic Family History: Parents, both Immunologic: Reports: None Dermatologic: Reports: None Oncologic: Reports: Breast, Other (See Below) Other Oncologic Family History: larynx - Tobacco Use Smoking Status *Q: Current Every Day Smoker Years of Tobacco use: 10 Packs/Tins Daily: 0.4 Used Tobacco, but Quit: No Second Hand Smoke Exposure: Yes - Caffeine Use Caffeine Use: Reports: Coffee - Alcohol Use Days Per Week of Alcohol Use: 0 Number of Drinks Per Day: 1 Total Drinks Per Week: 0 - Recreational Drug Use Recreational Drug Use: No - Living Situation & Occupation Living situation: Reports: Occupation: Employed ED ROS GENERAL - Review of Systems Review Of Systems: ROS reveals no pertinent complaints other than HPI. - Physical Exam Exam: See Below Exam Limited By: No Limitations General Appearance: Alert, WD/WN, Anxious, Mild Distress, Moderate Distress, Other (crying upset) Eye Exam: Bilateral Eye: PERRL (pupils ess ER @ 4mm pt photophobic) Ears: Hearing Grossly Normal Throat/Mouth: Normal Voice, No Airway Compromise Head Exam: Atraumatic Neck: Non-Tender, Full Range of Motion Respiratory/Chest: No Respiratory Distress Cardiovascular: Regular Rate, Rhythm GI/Abdominal: Soft, Non-Tender Neuro Exam (Abbreviated): Alert, Oriented, Normal Cognition, Normal Gait, No Motor/Sensory Deficits Psychiatric: Tearful Skin Exam: Warm, Dry, Normal Color Course - Vital Signs Last Recorded V/S: Last Vital Signs Temp 36.3 C 08/18/17 19:23 Pulse 81 08/18/17 19:23 Resp 18 08/18/17 19:23 BP 140/118 H 08/18/17 19:23 Pulse Ox 97 08/18/17 19:23 - Orders/Labs/Meds Meds: Medications Discontinued Medications Generic Name Dose Route Start Last Admin Trade Name Freq PRN Reason Stop Dose Admin Butorphanol Tartrate 2 mg 08/18/17 19:51 08/18/17 20:02 Stadol IM 08/18/17 19:52 2 mg ONETIME ONE Administration Promethazine HCl 50 mg 08/18/17 19:51 08/18/17 19:58 Phenergan IM 08/18/17 19:52 50 mg ONETIME ONE Administration - Re-Assessments/Exams Free Text/Narrative Re-Assessment/Exam: 08/18/17 20:23 re-exam; pt unhappy only got minimal relief whereas dilaudid 2mg gives her more relief. again I explained to pt re; legality in opiod Tx for chroinc problem in Er. pt states unable to get into clinic. Departure - Departure Time of Disposition: 20:25 Disposition: Home, Self-Care 01 Condition: Good Clinical Impression: Chronic migraine - Discharge Information Instructions: Recurrent Migraine Headache, [id number] Forms: ED Department Discharge Additional Instructions: 1) rest 2) see clinic or family doctor tomorrow 3) recheck as needed
[2017-08-18 20:32] VITALS: BP 148/84
== END 2017-08-18 20:32 | disposition home or self-care (01) ==
LOC: DL.ED 19:19 → EEVIPCON 19:19 → DL.ED 20:32
DX: G43.909 Migraine, unspecified, not intractable, without status migrainosus (principal); F17.210 Nicotine dependence, cigarettes, uncomplicated; I10 Essential (primary) hypertension; E11.9 Type 2 diabetes mellitus without complications; F41.9 Anxiety disorder, unspecified; Z79.84 Long term (current) use of oral hypoglycemic drugs; Z79.899 Other long term (current) drug therapy; Z88.1 Allergy status to other antibiotic agents; Z88.2 Allergy status to sulfonamides; Z88.5 Allergy status to narcotic agent; Z88.6 Allergy status to analgesic agent
CPT/HCPCS: 96372; 99283; J0595; J2550

== ENCOUNTER 2017-09-18 18:54 | Emergency (ER) | payer BC ==
[2017-09-18] MEDS ORDERED: Promethazine 25 MG/ML SDV IM ONE (20:52)
[2017-09-18] MEDS ORDERED: HYDROmorphone 1 MG/ML Syringe IM ONE (20:52)
--- NOTE | 2017-09-18 21:47 | EDM.PDOC ---
ED HPI GENERAL MEDICAL PROBLEM - General Chief Complaint: Headache Stated Complaint: MIGRAINE Time Seen by Provider: 09/18/17 20:00 Source of Information: Reports: Patient History Limitations: Reports: No Limitations - History of Present Illness INITIAL COMMENTS - FREE TEXT/NARRATIVE: C/O usual migraine starting on Friday. 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 Taking usual home medications and not helping. Botox approximately one month ago. Admits that last times did not help. Headache Pain Score (Numeric/FACES): 9 - Related Data Allergies Allergy/AdvReac Type Severity Reaction Status Date / Time amoxicillin [Amoxicillin] Allergy Rash Verified 09/18/17 20:02 codeine Allergy Abdominal Verified 09/18/17 20:02 Pain ketorolac tromethamine Allergy Itching Verified 09/18/17 20:02 [From Toradol] Sulfa (Sulfonamide Allergy Itching Verified 09/18/17 20:02 Antibiotics) Home Meds: Home Meds Atenolol [Tenormin] 50 mg PO DAILY 12/07/13 [History] Losartan Potassium 25 mg PO BID 12/07/13 [History] Nefbu-2-Stae Ethyl Esters [Lovaza] 1,000 mg PO BID 12/07/13 [History] Topiramate [Topamax] 100 mg PO BID 12/07/13 [History] Venlafaxine HCl [Venlafaxine ER] 150 mg PO DAILY 12/07/13 [History] metFORMIN [Glucophage] 500 mg PO BID 12/07/13 [History] Dihydroergotamine [Dhe 45] 1 mg SUBCUT ONETIME PRN 10/05/14 [History] Acetaminophen/Caffeine [Excedrin Tension Headache] 2 tab PO Q6HR PRN 11/23/14 [ History] Onabotulinumtoxina [Botox Cosmetic] 50 unit IM ASDIRECTED 11/23/14 [History] LORazepam [Ativan] 1 mg PO ASDIRECTED 03/01/15 [History] SUMAtriptan Succ/Naproxen Sod [Treximet 85-500 mg Tablet] 1 each PO ASDIRECTED PRN 01/05/16 [History] ZOLMitriptan [Zomig] 5 mg NS ASDIRECTED 01/28/16 [History] Rosuvastatin [Crestor] 1 tab PO BEDTIME 03/17/17 [History] Past Medical History HEENT History: Reports: Other (See Below) Other HEENT History: Migraine Cardiovascular History: Reports: Hypertension Respiratory History: Reports: None Gastrointestinal History: Reports: Cholelithiasis Genitourinary History: Reports: Renal Calculus 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 Neurological History: Reports: Migraines Other Neuro History: botox injections for migraines and nerve blocks Psychiatric History: Reports: Addiction, Anxiety Endocrine/Metabolic History: Reports: Diabetes, Type II Hematologic History: Reports: None Immunologic History: Reports: None Oncologic (Cancer) History: Reports: None Dermatologic History: Reports: None - Infectious Disease History Infectious Disease History: Reports: Chicken Pox, Mumps - Past Surgical History Head Surgeries/Procedures: Reports: None HEENT Surgical History: Reports: Adenoidectomy, Tonsillectomy GI Surgical History: Reports: Cholecystectomy Female Surgical History: Reports: Breast Reduction, Hysterectomy, Tubal Ligation Social & Family History - Family History Family Medical History: Noncontributory HEENT: Reports: None Cardiac: Reports: Bypass, CAD, Heart Failure, [place] Respiratory: Reports: None GI: Reports: None Endocrine/Metabolic: Reports: Diabetes, type II Other Endocrine/Metabolic Family History: Parents, both Immunologic: Reports: None Dermatologic: Reports: None Oncologic: Reports: Breast, Other (See Below) Other Oncologic Family History: larynx - Tobacco Use Smoking Status *Q: Current Every Day Smoker Years of Tobacco use: 10 Packs/Tins Daily: 0.5 Used Tobacco, but Quit: No Second Hand Smoke Exposure: No - Caffeine Use Caffeine Use: Reports: Coffee - Alcohol Use Days Per Week of Alcohol Use: 0 Number of Drinks Per Day: 1 Total Drinks Per Week: 0 - Recreational Drug Use Recreational Drug Use: No - Living Situation & Occupation Living situation: Reports: Occupation: Employed ED ROS GENERAL - Review of Systems Review Of Systems: ROS reveals no pertinent complaints other than HPI. - Physical Exam Exam: See Below Exam Limited By: No Limitations General Appearance: Alert, Mild Distress Eye Exam: Bilateral Eye: EOMI Ears: Normal External Exam Nose: Normal Inspection Throat/Mouth: Normal Inspection Head Exam: Atraumatic, Normocephalic Neck: Normal Inspection, Full Range of Motion Respiratory/Chest: No Respiratory Distress, Lungs Clear, Normal Breath Sounds Cardiovascular: Normal Peripheral Pulses, Regular Rate, Rhythm Neuro Exam (Abbreviated): Alert, Oriented, Normal Cognition, Normal Gait, No Motor/Sensory Deficits Extremities: Normal Range of Motion Psychiatric: Tearful Skin Exam: Warm, Dry, Intact, Normal Color Course - Vital Signs Last Recorded V/S: Last Vital Signs Temp 98.0 F 09/18/17 21:54 Pulse 76 09/18/17 21:54 Resp 18 09/18/17 21:54 BP 146/87 H 09/18/17 21:54 Pulse Ox 96 09/18/17 21:54 - Orders/Labs/Meds Meds: Medications Discontinued Medications Generic Name Dose Route Start Last Admin Trade Name Freq PRN Reason Stop Dose Admin Hydromorphone HCl 1 mg 09/18/17 20:52 09/18/17 21:08 Dilaudid IM 09/18/17 20:53 1 mg ONETIME ONE Administration Promethazine HCl 25 mg 09/18/17 20:52 09/18/17 21:07 Phenergan IM 09/18/17 20:53 25 mg ONETIME ONE Administration - Re-Assessments/Exams Free Text/Narrative Re-Assessment/Exam: Discussed with patient the importance of following up with primary care and neurology for alternatives to control headache beyond ED narcotic use. Patient tearful. Departure - Departure Time of Disposition: 21:45 Disposition: Home, Self-Care 01 Condition: Good Clinical Impression: Migraine Qualifiers: Migraine type: without aura Status migrainosus presence: with status migrainosus Intractability: not intractable Qualified Code(s): G43.001 - Migraine without aura, not intractable, with status migrainosus - Discharge Information Instructions: Migraine Headache, [id number] Referrals: PCP,None [Ordering Only Provider] - Forms: ED Department Discharge Additional Instructions: rest drink lots of fluids dark room avoid triggers continue home medications follow up with neurology
[2017-09-18 21:55] VITALS: BP 146/87
== END 2017-09-18 21:58 | disposition home or self-care (01) ==
LOC: DL.ED 18:54
DX: G43.001 Migraine without aura, not intractable, with status migrainosus (principal); I10 Essential (primary) hypertension; E11.9 Type 2 diabetes mellitus without complications; F17.210 Nicotine dependence, cigarettes, uncomplicated; Z88.1 Allergy status to other antibiotic agents; Z88.5 Allergy status to narcotic agent; Z88.2 Allergy status to sulfonamides; Z79.899 Other long term (current) drug therapy
CPT/HCPCS: 96372; 99283; J1170; J2550

== ENCOUNTER 2018-03-13 22:49 | Emergency (ER) | payer BC ==
[2018-03-14] MEDS ORDERED: diphenhydrAMINE 50 MG/ML SDV IVPUSH ONE (00:34)
[2018-03-14] MEDS ORDERED: HYDROmorphone 0.5 MG/0.5 ML Syringe IVPUSH ONE ×2 (00:34→01:29)
[2018-03-14] MEDS ORDERED: Promethazine 25 MG/ML SDV IM ONE (00:36)
[2018-03-14] MEDS ORDERED: Sodium Chloride 0.9% 1,000 ML IV ONE (00:36)
--- NOTE | 2018-03-14 01:29 | EDM.PDOC ---
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 . Starts in neck localizes behind right eye. Sensitive to light. Due to nausea has not yet taken evening dose of Atenolol Headache Pain Score (Numeric/FACES): 9 - Related Data Allergies Allergy/AdvReac Type Severity Reaction Status Date / Time amoxicillin [Amoxicillin] Allergy Rash Verified 03/13/18 23:01 codeine Allergy Abdominal Verified 03/13/18 23:01 Pain ketorolac tromethamine Allergy Itching Verified 03/13/18 23:01 [From Toradol] Sulfa (Sulfonamide Allergy Itching Verified 03/13/18 23:01 Antibiotics) Home Meds: Home Meds Atenolol [Tenormin] 50 mg PO DAILY 12/07/13 [History] Losartan Potassium 25 mg PO BID 12/07/13 [History] Tflvm-4-Ngaq Ethyl Esters [Lovaza] 1,000 mg PO BID 12/07/13 [History] Topiramate [Topamax] 100 mg PO BID 12/07/13 [History] Venlafaxine HCl [Venlafaxine ER] 150 mg PO DAILY 12/07/13 [History] metFORMIN [Glucophage] 500 mg PO BID 12/07/13 [History] Dihydroergotamine [Dhe 45] 1 mg SUBCUT ONETIME PRN 10/05/14 [History] Acetaminophen/Caffeine [Excedrin Tension Headache] 2 tab PO Q6HR PRN 11/23/14 [ History] LORazepam [Ativan] 1 mg PO ASDIRECTED 03/01/15 [History] SUMAtriptan Succ/Naproxen Sod [Treximet 85-500 mg Tablet] 1 each PO ASDIRECTED PRN 01/05/16 [History] ZOLMitriptan [Zomig] 5 mg NS ASDIRECTED 01/28/16 [History] Rosuvastatin [Crestor] 1 tab PO BEDTIME 03/17/17 [History] Past Medical History HEENT History: Reports: Other (See Below) Other HEENT History: Migraine Cardiovascular History: Reports: Hypertension Respiratory History: Reports: None Gastrointestinal History: Reports: Cholelithiasis Genitourinary History: Reports: Renal Calculus 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 Neurological History: Reports: Migraines Other Neuro History: botox injections for migraines and nerve blocks Psychiatric History: Reports: Addiction, Anxiety Endocrine/Metabolic History: Reports: Diabetes, Type II Hematologic History: Reports: None Immunologic History: Reports: None Oncologic (Cancer) History: Reports: None Dermatologic History: Reports: None - Infectious Disease History Infectious Disease History: Reports: Chicken Pox, Mumps - Past Surgical History Head Surgeries/Procedures: Reports: None HEENT Surgical History: Reports: Adenoidectomy, Tonsillectomy GI Surgical History: Reports: Cholecystectomy Female Surgical History: Reports: Breast Reduction, Hysterectomy, Tubal Ligation Social & Family History - Family History Family Medical History: Noncontributory HEENT: Reports: None Cardiac: Reports: Bypass, CAD, Heart Failure, [place] Respiratory: Reports: None GI: Reports: None Endocrine/Metabolic: Reports: Diabetes, type II Other Endocrine/Metabolic Family History: Parents, both Immunologic: Reports: None Dermatologic: Reports: None Oncologic: Reports: Breast, Other (See Below) Other Oncologic Family History: larynx - Tobacco Use Smoking Status *Q: Heavy Tobacco Smoker Years of Tobacco use: 25 Packs/Tins Daily: 0.5 - Caffeine Use Caffeine Use: Reports: Coffee - Recreational Drug Use Recreational Drug Use: No - Living Situation & Occupation Living situation: Reports: Occupation: Employed ED ROS GENERAL - Review of Systems Review Of Systems: ROS reveals no pertinent complaints other than HPI. - Physical Exam Exam: See Below Exam Limited By: No Limitations General Appearance: Alert, Moderate Distress Eye Exam: Bilateral Eye: EOMI, PERRL (3) Ears: Normal External Exam, Hearing Grossly Normal, Normal TMs Nose: Normal Inspection Throat/Mouth: Normal Inspection Head Exam: Atraumatic, Normocephalic Neck: Normal Inspection, Full Range of Motion, Limited Range of Motion Respiratory/Chest: No Respiratory Distress, Lungs Clear, Normal Breath Sounds Cardiovascular: Normal Peripheral Pulses GI/Abdominal: Normal Bowel Sounds Rectal (Female) Exam: Other Neuro Exam (Abbreviated): Oriented, Normal Cognition. No: Abnormal Gait, Sensory/Motor Deficit Extremities: Normal Range of Motion Skin Exam: Warm, Dry, Intact, Normal Color, Pallor Course - Vital Signs Last Recorded V/S: Last Vital Signs Temp 98 F 03/13/18 23:01 Pulse 87 03/14/18 02:00 Resp 16 03/14/18 02:00 BP 119/89 03/14/18 02:00 Pulse Ox 95 03/14/18 02:00 - Orders/Labs/Meds Meds: Medications Discontinued Medications Generic Name Dose Route Start Last Admin Trade Name Freq PRN Reason Stop Dose Admin Diphenhydramine HCl 25 mg 03/14/18 00:34 03/14/18 00:41 Benadryl IVPUSH 03/14/18 00:35 25 mg ONETIME ONE Administration Hydromorphone HCl 1 mg 03/14/18 00:34 03/14/18 00:40 Dilaudid IVPUSH 03/14/18 00:35 1 mg ONETIME ONE Administration Hydromorphone HCl 1 mg 03/14/18 01:29 03/14/18 01:35 Dilaudid IVPUSH 03/14/18 01:30 1 mg ONETIME ONE Administration Sodium Chloride 1,000 mls @ 999 mls/hr 03/14/18 00:36 03/14/18 00:40 Normal Saline IV 03/14/18 01:36 999 mls/hr .BOLUS ONE Administration Promethazine HCl 25 mg 03/14/18 00:36 03/14/18 00:43 Phenergan IM 03/14/18 00:37 25 mg ONETIME ONE Administration - Re-Assessments/Exams Free Text/Narrative Re-Assessment/Exam: 03/14/18 02:17 Nausea improved, Minimal improvement in Headache after 1st dose of dilaudid , is able to tolerate light. @nd dose of dilaudid with improvement Departure - Departure Time of Disposition: 01:58 Disposition: Home, Self-Care 01 Condition: Good Clinical Impression: Migraine - Discharge Information Instructions: Migraine Headache, [id number] Referrals: Vanda Baez PA [Primary Care Provider] - Forms: ED Department Discharge Additional Instructions: rest increase fluid intake follow up with primary care early in week continued recurrence of headache
[2018-03-14 02:17] VITALS: BP 119/89
== END 2018-03-14 02:06 | disposition home or self-care (01) ==
LOC: DL.ED 22:49
DX: G43.909 Migraine, unspecified, not intractable, without status migrainosus (principal); I10 Essential (primary) hypertension; E11.9 Type 2 diabetes mellitus without complications; Z88.5 Allergy status to narcotic agent; Z88.8 Allergy status to other drugs, medicaments and biological substances; Z88.2 Allergy status to sulfonamides; Z79.899 Other long term (current) drug therapy
CPT/HCPCS: 96361; 96372; 96374; 96375; 99283; J1170; J1200; J2550; J7030

== ENCOUNTER 2018-05-02 16:40 | Emergency (ER) | payer BC ==
[2018-05-02 17:11] VITALS: BP 148/98
[2018-05-02] MEDS ORDERED: Sodium Chloride 0.9% 1,000 ML IV ONE (17:52)
[2018-05-02] MEDS ORDERED: Sodium Chloride 0.9% 10 ML Syringe FLUSH PRN (17:55)
[2018-05-02] MEDS ORDERED: Butorphanol 2 MG/ML SDV IVPUSH ONE (17:55)
[2018-05-02] MEDS ORDERED: Promethazine 25 MG/ML SDV IM ONE (17:55)
--- NOTE | 2018-05-02 18:54 | EDM.PDOC ---
<Rivka Mercedes - Last Filed: 05/02/18 18:51> ED HPI GENERAL MEDICAL PROBLEM - General Chief Complaint: Headache Stated Complaint: MIGRAINE Time Seen by Provider: 05/02/18 17:43 Source of Information: Reports: Patient, RN, RN Notes Reviewed History Limitations: Reports: No Limitations - History of Present Illness INITIAL COMMENTS - FREE TEXT/NARRATIVE: Pt to Er with c/o headache. Pt states she has been fighting it all week, today it has worsened significantly. Left side of the head, behind the eyes, neck, shoulders, down the right arm. Admits to photophobia and phonophobia. Rates the pain 9/10. Admits to nausea. Denies fever, chills, or recent illness. Onset: Gradual Duration: Getting Worse Location: Reports: Head Quality: Reports: Stabbing, Throbbing Severity: Severe Improves with: Reports: None Headache Pain Score (Numeric/FACES): 9 - Related Data Allergies Allergy/AdvReac Type Severity Reaction Status Date / Time amoxicillin [Amoxicillin] Allergy Rash Verified 05/02/18 17:01 codeine Allergy Abdominal Verified 05/02/18 17:01 Pain ketorolac tromethamine Allergy Itching Verified 05/02/18 17:01 [From Toradol] Sulfa (Sulfonamide Allergy Itching Verified 05/02/18 17:01 Antibiotics) Home Meds: Home Meds Atenolol [Tenormin] 50 mg PO DAILY 12/07/13 [History] Losartan Potassium 25 mg PO BID 12/07/13 [History] Wuquc-5-Rinn Ethyl Esters [Lovaza] 1,000 mg PO BID 12/07/13 [History] Venlafaxine HCl [Venlafaxine ER] 150 mg PO DAILY 12/07/13 [History] metFORMIN [Glucophage] 1,000 mg PO BID 12/07/13 [History] Dihydroergotamine [Dhe 45] 1 mg SUBCUT ONETIME PRN 10/05/14 [History] Acetaminophen/Caffeine [Excedrin Tension Headache] 2 tab PO Q6HR PRN 11/23/14 [ History] LORazepam [Ativan] 1 mg PO ASDIRECTED 03/01/15 [History] SUMAtriptan Succ/Naproxen Sod [Treximet 85-500 mg Tablet] 1 each PO ASDIRECTED PRN 01/05/16 [History] ZOLMitriptan [Zomig] 5 mg NS ASDIRECTED 01/28/16 [History] Rosuvastatin [Crestor] 1 tab PO BEDTIME 03/17/17 [History] Ibuprofen 600 mg PO ASDIRECTED PRN 05/02/18 [History] Past Medical History HEENT History: Reports: Other (See Below) Other HEENT History: Migraine Cardiovascular History: Reports: Hypertension Respiratory History: Reports: None Gastrointestinal History: Reports: Cholelithiasis Genitourinary History: Reports: Renal Calculus LICSW History: Reports: , Other (See Below) Other LICSW History: Hysterectomy Musculoskeletal History: Reports: Back Pain, Chronic Other Musculoskeletal History: Herniated disc. Neurological History: Reports: Migraines Other Neuro History: botox injections for migraines and nerve blocks Psychiatric History: Reports: Addiction, Anxiety Endocrine/Metabolic History: Reports: Diabetes, Type II Hematologic History: Reports: None Immunologic History: Reports: None Oncologic (Cancer) History: Reports: None Dermatologic History: Reports: None - Infectious Disease History Infectious Disease History: Reports: Chicken Pox, Mumps - Past Surgical History Head Surgeries/Procedures: Reports: None HEENT Surgical History: Reports: Adenoidectomy, Tonsillectomy GI Surgical History: Reports: Cholecystectomy Female Surgical History: Reports: Breast Reduction, Hysterectomy, Tubal Ligation Social & Family History - Family History Family Medical History: Noncontributory HEENT: Reports: None Cardiac: Reports: Bypass, CAD, Heart Failure, [place] Respiratory: Reports: None GI: Reports: None Endocrine/Metabolic: Reports: Diabetes, type II Other Endocrine/Metabolic Family History: Parents, both Immunologic: Reports: None Dermatologic: Reports: None Oncologic: Reports: Breast, Other (See Below) Other Oncologic Family History: larynx - Tobacco Use Smoking Status *Q: Current Every Day Smoker Years of Tobacco use: 20 Packs/Tins Daily: 0.5 Second Hand Smoke Exposure: No - Caffeine Use Caffeine Use: Reports: Coffee - Recreational Drug Use Recreational Drug Use: No - Living Situation & Occupation Living situation: Reports: Occupation: Employed ED ROS GENERAL - Review of Systems Review Of Systems: ROS reveals no pertinent complaints other than HPI. - Physical Exam Exam: See Below Exam Limited By: No Limitations General Appearance: Alert, WD/WN, Moderate Distress Eye Exam: Bilateral Eye: EOMI, Normal Inspection Ears: Normal External Exam, Hearing Grossly Normal Nose: Normal Inspection Throat/Mouth: Normal Inspection, Normal Voice, No Airway Compromise Head Exam: Atraumatic, Normocephalic Neck: Normal Inspection, Supple, Limited Range of Motion, Tender Lateral Respiratory/Chest: No Respiratory Distress, Lungs Clear, Normal Breath Sounds, No Accessory Muscle Use, Chest Non-Tender Cardiovascular: Normal Peripheral Pulses, Regular Rate, Rhythm, No Edema, No Gallop, No JVD, No Murmur, No Rub GI/Abdominal: Normal Bowel Sounds, Soft, Non-Tender (Female) Exam: Deferred Rectal (Female) Exam: Deferred Neuro Exam (Abbreviated): Alert, Oriented, CN II-XII Intact, Normal Cognition, Normal Gait, Normal Reflexes, No Motor/Sensory Deficits Back Exam: Normal Inspection, Full Range of Motion Extremities: Normal Inspection, Normal Range of Motion, Non-Tender, No Pedal Edema, Normal Capillary Refill Psychiatric: Anxious, Tearful Skin Exam: Warm, Dry, Intact, Normal Color, No Rash Course - Vital Signs Last Recorded V/S: Last Vital Signs Temp 36.3 C 05/02/18 16:57 Pulse 86 05/02/18 16:57 Resp 20 05/02/18 16:57 BP 148/98 H 05/02/18 17:10 Pulse Ox 99 05/02/18 16:57 - Orders/Labs/Meds Orders: Active Orders 24 hr Category Date Time Status Peripheral IV Care [RC] . DIRECTED Care 05/02/18 17:55 Active Sodium Chloride 0.9% [Saline Flush] Med 05/02/18 17:55 Active 10 ml FLUSH ASDIRECTED PRN Peripheral IV Insertion Adult [OM.PC] Stat Oth 05/02/18 17:52 Ordered Medication Orders Sodium Chloride (Saline Flush) 10 ml FLUSH ASDIRECTED PRN PRN Reason: Keep Vein Open Last Admin: 05/02/18 18:09 Dose: 10 ml Meds: Medications Generic Name Dose Route Start Last Admin Trade Name Freq PRN Reason Stop Dose Admin Sodium Chloride 10 ml 05/02/18 17:55 05/02/18 18:09 Saline Flush FLUSH 10 ml ASDIRECTED PRN Administration Keep Vein Open Discontinued Medications Generic Name Dose Route Start Last Admin Trade Name Freq PRN Reason Stop Dose Admin Butorphanol Tartrate 2 mg 05/02/18 17:55 05/02/18 18:13 Stadol IVPUSH 05/02/18 17:56 2 mg ONETIME ONE Administration Sodium Chloride 1,000 mls @ 999 mls/hr 05/02/18 17:52 05/02/18 18:09 Normal Saline IV 05/02/18 18:52 999 mls/hr .BOLUS ONE Administration Promethazine HCl 25 mg 05/02/18 17:55 05/02/18 18:10 Phenergan IM 05/02/18 17:56 25 mg ONETIME ONE Administration Departure - Departure Disposition: Home, Self-Care 01 Clinical Impression: Chronic migraine - Discharge Information Instructions: Migraine Headache, [id number] Forms: ED Department Discharge Additional Instructions: 1) follow up at clinic 2) recheck as needed <Noah Olivia - Last Filed: 05/02/18 19:18> Course - Re-Assessments/Exams Free Text/Narrative Re-Assessment/Exam: 05/02/18 19:11 re-exam; pt still not 100%. pt got unhappy and doesn't want to hear about the legalities of opiod treatment for a penitentiary problem. Departure - Departure Time of Disposition: 19:17 Condition: Fair
== END 2018-05-02 19:24 | disposition home or self-care (01) ==
LOC: DL.ED 16:40
DX: G43.909 Migraine, unspecified, not intractable, without status migrainosus (principal); I10 Essential (primary) hypertension; E11.9 Type 2 diabetes mellitus without complications; Z88.1 Allergy status to other antibiotic agents; F17.210 Nicotine dependence, cigarettes, uncomplicated; Z88.2 Allergy status to sulfonamides; Z88.5 Allergy status to narcotic agent; Z79.84 Long term (current) use of oral hypoglycemic drugs; Z79.899 Other long term (current) drug therapy
CPT/HCPCS: 96365; 96372; 96375; 99283; J0595; J2550; J7030; J7050

== ENCOUNTER 2019-10-15 14:54 | Emergency (ER) | payer BC ==
[2019-10-15 15:02] VITALS: BP 174/109; PULSE 72
[2019-10-15] MEDS ORDERED: Ondansetron 4 MG/2 ML SDV IVPUSH ONE (15:13)
[2019-10-15] MEDS ORDERED: Sodium Chloride 0.9% 1,000 ML IV ONE (15:13)
[2019-10-15 15:41] LABS: ANION GAP 13.2 mEq/L (7-13); CHLORIDE,CL 102 mmol/L (98-107); SODIUM,NA 141 mmol/L (136-145)
--- NOTE | 2019-10-15 15:49 | EDM.PDOC ---
ED HPI GENERAL MEDICAL PROBLEM - General Chief Complaint: Gastrointestinal Problem Stated Complaint: FLU CANT KEEP ANYTHING DOWN Time Seen by Provider: 10/15/19 15:15 Source of Information: Reports: Patient History Limitations: Reports: No Limitations - History of Present Illness INITIAL COMMENTS - FREE TEXT/NARRATIVE: This 59 yo female patient reports to the ED with diffuse abdominal pain with nausea/vomiting. The patient states she was seen in the Clinic on Friday due to similar symptoms. The patient reports she was given Reglan, but has not been able to keep any food down since Friday. The patient was supposed to follow-up in the Clinic today, but came to the ED instead. The patient reports she has not been tested for anything through the clinic. Duration: Week(s):, Constant Location: Reports: Abdomen Quality: Reports: Ache, Dull Severity: Moderate Improves with: Reports: None Worsens with: Reports: None Context: Reports: Other Associated Symptoms: Reports: No Other Symptoms Abdomen Pain Score (Numeric/FACES): 2 body aches Pain Score (Numeric/FACES): 2 - Related Data Allergies Allergy/AdvReac Type Severity Reaction Status Date / Time amoxicillin [Amoxicillin] Allergy Rash Verified 10/15/19 15:07 codeine Allergy Abdominal Verified 10/15/19 15:07 Pain ketorolac tromethamine Allergy Itching Verified 10/15/19 15:07 [From Toradol] Sulfa (Sulfonamide Allergy Itching Verified 10/15/19 15:07 Antibiotics) Home Meds: Home Meds Losartan Potassium 25 mg PO BID 12/07/13 [History] [id number] Ethyl Esters [Lovaza] 1,000 mg PO BID 12/07/13 [History] Venlafaxine HCl [Venlafaxine ER] 150 mg PO DAILY 12/07/13 [History] atenoloL [Tenormin] 50 mg PO DAILY 12/07/13 [History] metFORMIN [Glucophage] 1,000 mg PO BID 12/07/13 [History] Acetaminophen/Caffeine [Excedrin Tension Headache] 2 tab PO Q6HR PRN 11/23/14 [ History] LORazepam [Ativan] 1 mg PO ASDIRECTED 03/01/15 [History] Rosuvastatin [Crestor] 1 tab PO BEDTIME 03/17/17 [History] Ibuprofen 600 mg PO ASDIRECTED PRN 05/02/18 [History] SUMAtriptan [Sumatriptan] 5 mg NS ASDIRECTED PRN #1 spray 07/31/18 [Rx] Past Medical History HEENT History: Reports: Other (See Below) Other HEENT History: Migraine Cardiovascular History: Reports: Hypertension Respiratory History: Reports: None Gastrointestinal History: Reports: Cholelithiasis Genitourinary History: Reports: Renal Calculus 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 Neurological History: Reports: Migraines Other Neuro History: botox injections for migraines and nerve blocks Psychiatric History: Reports: Addiction, Anxiety Endocrine/Metabolic History: Reports: Diabetes, Type II Hematologic History: Reports: None Immunologic History: Reports: None Oncologic (Cancer) History: Reports: None Dermatologic History: Reports: None - Infectious Disease History Infectious Disease History: Reports: Chicken Pox, Mumps - Past Surgical History Head Surgeries/Procedures: Reports: None HEENT Surgical History: Reports: Adenoidectomy, Tonsillectomy GI Surgical History: Reports: Cholecystectomy Female Surgical History: Reports: Breast Reduction, Hysterectomy, Tubal Ligation Social & Family History - Family History Family Medical History: Noncontributory HEENT: Reports: None Cardiac: Reports: Bypass, CAD, Heart Failure, [place] Respiratory: Reports: None GI: Reports: None Endocrine/Metabolic: Reports: Diabetes, type II Other Endocrine/Metabolic Family History: Parents, both Immunologic: Reports: None Dermatologic: Reports: None Oncologic: Reports: Breast, Other (See Below) Other Oncologic Family History: larynx - Tobacco Use Smoking Status *Q: Current Every Day Smoker Years of Tobacco use: 10 Packs/Tins Daily: 0.5 - Caffeine Use Caffeine Use: Reports: Coffee - Recreational Drug Use Recreational Drug Use: No - Living Situation & Occupation Living situation: Reports: Occupation: Employed ED ROS GENERAL - Review of Systems Review Of Systems: Comprehensive ROS is negative, except as noted in HPI. ED EXAM, GI/ABD - Physical Exam Exam: See Below Exam Limited By: No Limitations General Appearance: Alert, WD/WN, No Apparent Distress Eyes: Bilateral: Normal Appearance, EOMI Ears: Normal External Exam, Normal Canal, Hearing Grossly Normal, Normal TMs Nose: Normal Inspection, Normal Mucosa, No Blood Throat/Mouth: Normal Inspection, Normal Lips, Normal Teeth, Normal Gums, Normal Oropharynx, Normal Voice, No Airway Compromise Head: Atraumatic, Normocephalic Neck: Normal Inspection, Supple, Non-Tender, Full Range of Motion Respiratory/Chest: No Respiratory Distress, Lungs Clear, Normal Breath Sounds, No Accessory Muscle Use, Chest Non-Tender Cardiovascular: Normal Peripheral Pulses, Regular Rate, Rhythm, No Edema, No Gallop, No JVD, No Murmur, No Rub GI/Abdominal Exam: Normal Bowel Sounds, Tender (diffuse tenderness) (Female) Exam: Deferred Rectal (Female) Exam: Deferred Back Exam: Normal Inspection, Full Range of Motion, NT Extremities: Normal Inspection, Normal Range of Motion, Non-Tender, Normal Capillary Refill, No Pedal Edema Neurological: Alert, Oriented, CN II-XII Intact, Normal Cognition, Normal Gait, Normal Reflexes, No Motor/Sensory Deficits Psychiatric: Normal Affect, Normal Mood Skin Exam: Warm, Dry, Intact, Normal Color, No Rash Lymphatic: No Adenopathy Course - Vital Signs Last Recorded V/S: Last Vital Signs Temp 36.4 C 10/15/19 15:01 Pulse 72 10/15/19 15:01 Resp 16 10/15/19 15:01 BP 174/109 H 10/15/19 15:01 Pulse Ox 100 10/15/19 15:01 - Orders/Labs/Meds Orders: Active Orders 24 hr Category Date Time Status UA RFX LOU AND CULT IF INDIC [URIN] Urgent Lab 10/15/19 15:04 Ordered Labs: Laboratory Tests 10/15/19 10/15/19 10/15/19 Range/Units 15:17 15:17 15:17 WBC 8.2 (5.0-10.0) 10^3/uL RBC 4.54 (4.2-5.4) 10^6/uL Hgb 14.0 (12.0-16.0) g/dL Hct 42.5 (37.0-47.0) % MCV 93.6 (80-100) fL MCH 30.8 (27.0-34.0) pg MCHC 32.9 L (33.0-35.0) g/dL Plt Count 198 (150-450) 10^3/uL Neut % (Auto) 62.7 (42.2-75.2) % Lymph % (Auto) 31.0 (20.5-50.1) % [place] % (Auto) 5.1 (2-8) % Eos % (Auto) 1.0 (1.0-3.0) % Baso % (Auto) 0.2 (0.0-1.0) % Sodium 141 (136-145) mmol/L Potassium 4.2 (3.5-5.1) mmol/L Chloride 102 (98-107) mmol/L Carbon Dioxide 30 (21-32) mmol/L Anion Gap 13.2 H (7-13) mEq/L BUN 13 (7-18) mg/dL Creatinine 0.87 (0.55-1.02) mg/dL Est Cr Clr Drug Dosing 61.10 mL/min Estimated GFR (MDRD) > 60 BUN/Creatinine Ratio 14.9 (No establ ref range) Glucose 125 H (74-99) mg/dL Calcium 9.3 (8.5-10.1) mg/dL Total Bilirubin 0.4 (0.2-1.0) mg/dL AST 47 H (15-37) U/L ALT 109 H (14-59) U/L Alkaline Phosphatase 112 (46-116) U/L Total Protein 7.3 (6.4-8.2) g/dL Albumin 4.3 (3.4-5.0) g/dL Globulin 3.0 Albumin/Globulin Ratio 1.4 Amylase 31 (25-115) U/L Lipase 116 (73-393) U/L Meds: Medications Discontinued Medications Generic Name Dose Route Start Last Admin Trade Name Freq PRN Reason Stop Dose Admin Sodium Chloride 1,000 mls @ 999 mls/hr 10/15/19 15:13 10/15/19 15:33 Normal Saline IV 10/15/19 16:13 999 mls/hr .BOLUS ONE Administration Ondansetron HCl 4 mg 10/15/19 15:13 10/15/19 15:34 Zofran IVPUSH 10/15/19 15:14 4 mg ONETIME ONE Administration Departure - Departure Time of Disposition: 16:29 Disposition: Home, Self-Care 01 Condition: Fair Clinical Impression: Gastroenteritis - Discharge Information *PRESCRIPTION DRUG MONITORING PROGRAM REVIEWED*: Not Applicable *COPY OF PRESCRIPTION DRUG MONITORING REPORT IN PATIENT CONSTANZA: Not Applicable Instructions: Viral Gastroenteritis, Adult, [id number] Forms: ED Department Discharge Care Plan Goals: The patient was advised of the examination and lab results during the visit. The patient was given a liter of IV fluid and IV Zofran. The patient was discharged with a script for Zofran (4 mg) #20 to take 1 by mouth every 6 hours as needed for nausea. The patient was encouraged to stick to a BRAT diet with small frequent sips of fluid. If the patient has any additional symptoms or concerns, the patient should either return to the emergency department or visit her primary care facility. Sepsis Event Note - Evaluation Sepsis Screening Result: No Definite Risk - Focused Exam Vital Signs: Vital Signs Temp Pulse Resp BP Pulse Ox 10/15/19 15:01 36.4 C 72 16 174/109 H 100 Date Exam was Performed: 10/15/19 Time Exam was Performed: 16:22 - My Orders Last 24 Hours: My Active Orders 10/15/19 15:04 UA RFX LOU AND CULT IF INDIC [URIN] Urgent - Assessment/Plan Last 24 Hours: My Active Orders 10/15/19 15:04 UA RFX LOU AND CULT IF INDIC [URIN] Urgent
== END 2019-10-15 16:46 | disposition home or self-care (01) ==
LOC: DL.ED 14:54
DX: K52.9 Noninfective gastroenteritis and colitis, unspecified (principal); I10 Essential (primary) hypertension; E11.9 Type 2 diabetes mellitus without complications; F41.9 Anxiety disorder, unspecified; F17.210 Nicotine dependence, cigarettes, uncomplicated; Z88.1 Allergy status to other antibiotic agents; Z88.5 Allergy status to narcotic agent; Z88.6 Allergy status to analgesic agent; Z88.2 Allergy status to sulfonamides; Z79.84 Long term (current) use of oral hypoglycemic drugs; Z90.710 Acquired absence of both cervix and uterus; Z98.890 Other specified postprocedural states; Z98.51 Tubal ligation status; Z90.49 Acquired absence of other specified parts of digestive tract
CPT/HCPCS: 36415; 80053; 82150; 83690; 85025; 87804; 96361; 96374; 99284; J2405; J7030

== ENCOUNTER 2024-09-14 13:21 | Emergency (ER) | payer MEDICARE, BC ==
[2024-09-14 13:48] VITALS: BP 145/101; PULSE 71
[2024-09-14] MEDS: Sodium Chloride 0.9% 1,000 ML IV ONE (14:21)
[2024-09-14] MEDS: Prochlorperazine 5 MG Tab PO ONE (14:21)
[2024-09-14] MEDS: HYDROmorphone 1 MG/ML Syringe IVPUSH ONE ×2 (15:13→15:57)
== END 2024-09-14 16:31 | disposition home or self-care (01) ==
LOC: DL.ED 13:21
DX: G43.019 Migraine without aura, intractable, without status migrainosus (principal); I10 Essential (primary) hypertension; E11.9 Type 2 diabetes mellitus without complications; F17.210 Nicotine dependence, cigarettes, uncomplicated; Z90.49 Acquired absence of other specified parts of digestive tract; Z90.710 Acquired absence of both cervix and uterus; Z88.0 Allergy status to penicillin; Z88.2 Allergy status to sulfonamides; Z88.5 Allergy status to narcotic agent; Z88.8 Allergy status to other drugs, medicaments and biological substances; Z79.84 Long term (current) use of oral hypoglycemic drugs; Z79.899 Other long term (current) drug therapy
CPT/HCPCS: 70450; 96374; 96375; 96376; 99283; 99284; J1171; J3360; J7030; Q0164

== ENCOUNTER 2024-09-15 19:23 | Emergency (ER) | payer MEDICARE, BC ==
[2024-09-15 22:30] VITALS: BP 158/99; PULSE 65
== END 2024-09-15 23:07 | disposition home or self-care (01) ==
LOC: DL.ED 19:23
DX: G43.909 Migraine, unspecified, not intractable, without status migrainosus (principal); I10 Essential (primary) hypertension; E11.9 Type 2 diabetes mellitus without complications; F17.210 Nicotine dependence, cigarettes, uncomplicated; Z88.0 Allergy status to penicillin; Z88.5 Allergy status to narcotic agent; Z88.2 Allergy status to sulfonamides; Z79.899 Other long term (current) drug therapy; Z79.84 Long term (current) use of oral hypoglycemic drugs; Z90.49 Acquired absence of other specified parts of digestive tract
CPT/HCPCS: 99283

== ENCOUNTER 2024-09-19 06:48 | Emergency (ER) | payer MEDICARE, BC ==
[2024-09-19] MEDS ORDERED: Sodium Chloride 0.9% 10 ML Syringe FLUSH PRN (07:13)
[2024-09-19] MEDS: Dexamethasone 4 MG/ML SDV IVPUSH ONE (07:39)
[2024-09-19] MEDS: diphenhydrAMINE 50 MG/ML SDV IVPUSH ONE (07:39)
[2024-09-19] MEDS: Metoclopramide 10 MG/2 ML SDV IVPUSH ONE (07:39)
[2024-09-19] MEDS: SUMAtriptan 6 MG/0.5 ML SDV SUBCUT ONE (07:39)
[2024-09-19 08:01] VITALS: BP 158/97; PULSE 69
== END 2024-09-19 08:56 | disposition home or self-care (01) ==
LOC: DL.ED 06:48
DX: G43.909 Migraine, unspecified, not intractable, without status migrainosus (principal); I10 Essential (primary) hypertension; E11.9 Type 2 diabetes mellitus without complications; Z90.49 Acquired absence of other specified parts of digestive tract; Z90.710 Acquired absence of both cervix and uterus; F17.210 Nicotine dependence, cigarettes, uncomplicated; Z88.5 Allergy status to narcotic agent; Z88.8 Allergy status to other drugs, medicaments and biological substances; Z88.2 Allergy status to sulfonamides; Z79.899 Other long term (current) drug therapy; Z79.84 Long term (current) use of oral hypoglycemic drugs
CPT/HCPCS: 96374; 96375; 99283; J1100; J1200; J2765

== ENCOUNTER 2024-10-09 11:04 | Emergency (ER) | payer MEDICARE, BC ==
[2024-10-09 11:28] LABS: BASOPHILS PERCENT AUTO 0.3 % (0.0-1.0); EOSINOPHILS PERCENT AUTO 1.8 % (1.0-3.0); HEMATOCRIT 40.9 % (37.0-47.0); MEAN CORPUSCULAR HEMOGLOBIN 30.1 pg (27.0-34.0); MEAN CORPUSCULAR HGB CONC 31.8 g/dL (33.0-35.0); MEAN CORPUSCULAR VOLUME 94.7 fL (80-100); MONOCYTES PERCENT AUTO 7.7 % (2-8); NEUTROPHILS PERCENT AUTO 62.2 % (42.2-75.2); PLATELET COUNT,PLT 192 10^3/uL (150-450); RED BLOOD CELL COUNT 4.32 10^6/uL (4.2-5.4); WHITE BLOOD CELL COUNT,WBC 6.5 10^3/uL (5.0-10.0)
[2024-10-09 11:31] LABS: BILIRUBIN,URINE NEGATIVE (NEGATIVE); COLOR,URINE YELLOW (YELLOW); GLUCOSE,URINE NEGATIVE (NEGATIVE); KETONES,URINE NEGATIVE (NEGATIVE); LEUKOCYTE ESTERASE,URINE NEGATIVE (NEGATIVE); NITRITE,URINE NEGATIVE (NEGATIVE); OCCULT BLOOD,URINE NEGATIVE (NEGATIVE); PH,URINE 7.5 (5.0-9.0); PROTEIN,URINE NEGATIVE (NEGATIVE); UROBILINOGEN,URINE 0.2 mg/dL (0.2-1.0)
[2024-10-09 11:39] LABS: APPEARANCE,URINE CLEAR (CLEAR)
[2024-10-09 11:48] LABS: A/G RATIO 1.3; ALANINE AMINOTRANSFERASE,ALT 38 U/L (14-59); ALKALINE PHOSPHATASE 113 U/L (46-116); ANION GAP 11.4 mEq/L (7-13); ASPARTATE AMNIOTRANSFERASE,AST 16 U/L (15-37); BILIRUBIN TOTAL 0.3 mg/dL (0.2-1.0); BLOOD UREA NITROGEN,BUN 18 mg/dL (7-18); CALCIUM 10.2 mg/dL (8.5-10.1); CARBON DIOXIDE,CO2 33 mmol/L (21-32); CHLORIDE,CL 103 mmol/L (98-107); EST CRCL DRUG DOSING (CG) 55.33 mL/min; GLUCOSE RANDOM 109 mg/dL (70-99); MAGNESIUM 2.1 mg/dL (1.8-2.4); POTASSIUM,K 4.4 mmol/L (3.5-5.1); PROTEIN TOTAL,TP 7.1 g/dL (6.4-8.2); SODIUM,NA 143 mmol/L (136-145)
[2024-10-09 11:49] LABS: C-REACTIVE PROTEIN < 0.50 ng/dL (<=0.50); ESTIMATED GFR 71 mL/min (>=60)
[2024-10-09 13:15] VITALS: BP 177/110; PULSE 66
== END 2024-10-09 13:15 | disposition home or self-care (01) ==
LOC: DL.ED 11:04
DX: M54.50 Low back pain, unspecified (principal); I10 Essential (primary) hypertension; E11.9 Type 2 diabetes mellitus without complications; Z88.0 Allergy status to penicillin; Z88.5 Allergy status to narcotic agent; Z88.2 Allergy status to sulfonamides; Z88.8 Allergy status to other drugs, medicaments and biological substances; Z79.84 Long term (current) use of oral hypoglycemic drugs; Z79.899 Other long term (current) drug therapy; Z90.49 Acquired absence of other specified parts of digestive tract; Z90.710 Acquired absence of both cervix and uterus
CPT/HCPCS: 36415; 74176; 80053; 81003; 83735; 85025; 86140; 99283; 99284

== ENCOUNTER 2024-12-11 22:33 | Emergency (ER) | payer MEDICARE, BC ==
[2024-12-11] MEDS: Ondansetron 4 MG Tab.DIS PO ONE (22:55)
[2024-12-12] MEDS: Bupivacaine 0.5% 30 ML SDV ONE (01:11)
[2024-12-12] MEDS: methylPREDNISolone Sodium Succinate 2 GM Vial IV ONE (02:19)
[2024-12-12] MEDS: methylPREDNISolone Sodium Succinate 125 MG/2 ML SDV IM ONE (02:19)
[2024-12-12 02:23] VITALS: BP 136/81; PULSE 68
== END 2024-12-12 02:23 | disposition home or self-care (01) ==
LOC: DL.ED 22:33
DX: G43.109 Migraine with aura, not intractable, without status migrainosus (principal); G43.E09 Chronic migraine with aura, not intractable, without status migrainosus; I10 Essential (primary) hypertension; E78.00 Pure hypercholesterolemia, unspecified; E11.9 Type 2 diabetes mellitus without complications; Z88.1 Allergy status to other antibiotic agents; Z88.5 Allergy status to narcotic agent; Z88.2 Allergy status to sulfonamides; Z88.8 Allergy status to other drugs, medicaments and biological substances; Z79.84 Long term (current) use of oral hypoglycemic drugs; Z79.899 Other long term (current) drug therapy; Z90.49 Acquired absence of other specified parts of digestive tract; Z90.710 Acquired absence of both cervix and uterus
CPT/HCPCS: 20552; 96372; 99283; A9270; J0665; J2919

== ENCOUNTER 2024-12-28 17:22 | Emergency (ER) | payer MEDICARE, BC ==
[2024-12-28 19:35] VITALS: BP 165/96; PULSE 79
[2024-12-28] MEDS ORDERED: Bupivacaine 0.5% 30 ML SDV ONE (19:50)
== END 2024-12-28 20:48 | disposition home or self-care (01) ==
LOC: DL.ED 17:22
DX: G43.909 Migraine, unspecified, not intractable, without status migrainosus (principal); I10 Essential (primary) hypertension; E78.00 Pure hypercholesterolemia, unspecified; E11.9 Type 2 diabetes mellitus without complications; F17.200 Nicotine dependence, unspecified, uncomplicated; Z88.0 Allergy status to penicillin; Z88.2 Allergy status to sulfonamides; Z88.8 Allergy status to other drugs, medicaments and biological substances; Z79.899 Other long term (current) drug therapy; Z90.49 Acquired absence of other specified parts of digestive tract
CPT/HCPCS: 64450; 99283; 99283-25

== ENCOUNTER 2025-01-18 20:03 | Emergency (ER) | payer MEDICARE, BC ==
[2025-01-18] MEDS: Sodium Chloride 0.9% 1,000 ML IV ONE (20:35)
[2025-01-18] MEDS: Metoclopramide 10 MG/2 ML SDV IVPUSH ONE (20:36)
[2025-01-18] MEDS: diphenhydrAMINE 50 MG/ML SDV IVPUSH ONE (20:39)
[2025-01-18] MEDS: Dexamethasone 4 MG/ML SDV IVPUSH ONE (20:42)
[2025-01-18] MEDS: Magnesium Sulfate 2 GM/50 mL 2 GM in Premix Bag 1 BAG IV ONE (21:36)
[2025-01-18 22:28] VITALS: BP 137/74; PULSE 69
== END 2025-01-18 22:25 | disposition home or self-care (01) ==
LOC: DL.ED 20:03
DX: G43.909 Migraine, unspecified, not intractable, without status migrainosus (principal); E78.00 Pure hypercholesterolemia, unspecified; I10 Essential (primary) hypertension; E11.9 Type 2 diabetes mellitus without complications; Z88.0 Allergy status to penicillin; Z88.5 Allergy status to narcotic agent; Z88.2 Allergy status to sulfonamides; Z88.8 Allergy status to other drugs, medicaments and biological substances; Z79.84 Long term (current) use of oral hypoglycemic drugs; Z79.899 Other long term (current) drug therapy
CPT/HCPCS: 96361; 96365; 96375; 99283; J1100; J1200; J2765; J3475; J7030

== ENCOUNTER 2025-01-24 13:29 | Emergency (ER) | payer MEDICARE, BC ==
[2025-01-24] MEDS: Ondansetron 4 MG Tab.DIS PO ONE (13:55)
[2025-01-24] MEDS: Bupivacaine 0.25%/EPINEPHrine 1:200,000 30 ML SDV NERVRT ONE (14:06)
[2025-01-24] MEDS: Bupivacaine 0.5%/EPINEPHrine 1:200,000 10 ML SDV INJECT ONE (14:07)
[2025-01-24] MEDS: Bupivacaine 0.25%/EPINEPHrine 1:200,000 30 ML SDV ONE (14:25)
[2025-01-24] MEDS: Promethazine 25 MG Tab PO ONE (15:04)
[2025-01-24 16:19] VITALS: BP 133/74; PULSE 78
== END 2025-01-24 16:15 | disposition home or self-care (01) ==
LOC: DL.ED 13:29
DX: R51.9 Headache, unspecified (principal); I10 Essential (primary) hypertension; E78.00 Pure hypercholesterolemia, unspecified; E11.9 Type 2 diabetes mellitus without complications; Z90.49 Acquired absence of other specified parts of digestive tract; Z79.899 Other long term (current) drug therapy; Z79.84 Long term (current) use of oral hypoglycemic drugs; Z88.2 Allergy status to sulfonamides; Z88.0 Allergy status to penicillin; Z88.8 Allergy status to other drugs, medicaments and biological substances; Z88.5 Allergy status to narcotic agent
CPT/HCPCS: 64450; 99282; 99283; A9270; Q0169; J3490

== ENCOUNTER 2025-03-03 18:25 | Emergency (ER) | payer MEDICARE, BC ==
[2025-03-03] MEDS: Magnesium Sulfate 2 GM/50 mL 2 GM in Premix Bag 1 BAG IV ONE (22:19)
[2025-03-03] MEDS: diphenhydrAMINE 50 MG/ML SDV IVPUSH ONE (22:19)
[2025-03-03] MEDS: Dexamethasone 4 MG/ML SDV IVPUSH ONE (22:22)
[2025-03-04 00:14] VITALS: BP 135/72; PULSE 66
== END 2025-03-04 00:15 | disposition home or self-care (01) ==
LOC: DL.ED 18:25
DX: G40.909 Epilepsy, unspecified, not intractable, without status epilepticus (principal); E78.00 Pure hypercholesterolemia, unspecified; I10 Essential (primary) hypertension; E11.9 Type 2 diabetes mellitus without complications; F17.210 Nicotine dependence, cigarettes, uncomplicated; Z88.8 Allergy status to other drugs, medicaments and biological substances; Z88.6 Allergy status to analgesic agent; Z88.5 Allergy status to narcotic agent; Z88.2 Allergy status to sulfonamides; Z79.899 Other long term (current) drug therapy
CPT/HCPCS: 96365; 96375; 99283; J1100; J1200; J2765; J3475; J7030

== ENCOUNTER 2025-03-08 13:00 | Emergency (ER) | payer MEDICARE, BC ==
[2025-03-08 13:31] VITALS: BP 145/92; PULSE 69
== END 2025-03-08 14:40 | disposition home or self-care (01) ==
LOC: DL.ED 13:00
DX: G43.709 Chronic migraine without aura, not intractable, without status migrainosus (principal); I10 Essential (primary) hypertension; E78.00 Pure hypercholesterolemia, unspecified; E11.9 Type 2 diabetes mellitus without complications; Z90.49 Acquired absence of other specified parts of digestive tract; Z90.710 Acquired absence of both cervix and uterus; Z88.5 Allergy status to narcotic agent; Z88.2 Allergy status to sulfonamides; Z88.0 Allergy status to penicillin; Z88.8 Allergy status to other drugs, medicaments and biological substances; Z79.84 Long term (current) use of oral hypoglycemic drugs; Z79.899 Other long term (current) drug therapy
CPT/HCPCS: 64400; 96372; 99283; J2003; J2765

== ENCOUNTER 2025-04-06 15:20 | Emergency (ER) | payer MEDICARE, BC ==
[2025-04-06] MEDS: Ondansetron 4 MG Tab.DIS PO ONE (15:48)
[2025-04-06 16:49] VITALS: BP 138/87; PULSE 64
== END 2025-04-06 16:45 | disposition home or self-care (01) ==
LOC: DL.ED 15:20
DX: G43.909 Migraine, unspecified, not intractable, without status migrainosus (principal); I10 Essential (primary) hypertension; E11.9 Type 2 diabetes mellitus without complications; F17.200 Nicotine dependence, unspecified, uncomplicated; Z90.49 Acquired absence of other specified parts of digestive tract; Z88.5 Allergy status to narcotic agent; Z88.2 Allergy status to sulfonamides; Z79.899 Other long term (current) drug therapy; Z90.710 Acquired absence of both cervix and uterus
CPT/HCPCS: 99283; A9270-GY

== ENCOUNTER 2025-04-13 13:08 | Emergency (ER) | payer MEDICARE, BC ==
[2025-04-13 14:12] VITALS: BP 122/66; PULSE 70
[2025-04-13] MEDS: Orphenadrine 60 MG/2 ML Inj IM ONE (15:01)
== END 2025-04-13 15:26 | disposition home or self-care (01) ==
LOC: DL.ED 13:08
DX: G43.909 Migraine, unspecified, not intractable, without status migrainosus (principal); I10 Essential (primary) hypertension; E78.00 Pure hypercholesterolemia, unspecified; E11.9 Type 2 diabetes mellitus without complications; Z88.0 Allergy status to penicillin; Z88.2 Allergy status to sulfonamides; Z88.5 Allergy status to narcotic agent; Z88.8 Allergy status to other drugs, medicaments and biological substances; Z79.84 Long term (current) use of oral hypoglycemic drugs; Z79.899 Other long term (current) drug therapy; Z90.49 Acquired absence of other specified parts of digestive tract; Z90.710 Acquired absence of both cervix and uterus
CPT/HCPCS: 64400; 96372; 99283; J2003; J2360; J2765

== ENCOUNTER 2025-04-22 15:28 | Emergency (ER) | payer MEDICARE, BC ==
[2025-04-22] MEDS: Lidocaine 2% Viscous Solution 15 ML UD TOP ONE (16:59)
[2025-04-22 17:40] VITALS: BP 132/75; PULSE 67
== END 2025-04-22 17:39 | disposition home or self-care (01) ==
LOC: DL.ED 15:28
DX: G43.909 Migraine, unspecified, not intractable, without status migrainosus (principal); I10 Essential (primary) hypertension; E78.00 Pure hypercholesterolemia, unspecified; E11.9 Type 2 diabetes mellitus without complications; F17.200 Nicotine dependence, unspecified, uncomplicated; Z79.899 Other long term (current) drug therapy; Z90.49 Acquired absence of other specified parts of digestive tract; Z90.710 Acquired absence of both cervix and uterus; Z88.2 Allergy status to sulfonamides; Z88.5 Allergy status to narcotic agent; Z88.8 Allergy status to other drugs, medicaments and biological substances
CPT/HCPCS: 64400; 96372; 99283; A9270; J2765

== ENCOUNTER 2025-06-22 12:38 | Emergency (ER) | payer MEDICARE, BC ==
[2025-06-22 13:01] VITALS: PULSE 69
[2025-06-22 13:23] LABS: BASOPHILS PERCENT AUTO 0.1 % (0.0-1.0); EOSINOPHILS PERCENT AUTO 1.8 % (1.0-3.0); LYMPHOCYTES PERCENT AUTO 25.7 % (20.5-50.1); MONOCYTES PERCENT AUTO 6.3 % (2-8); NEUTROPHILS PERCENT AUTO 66.1 % (42.2-75.2); PLATELET COUNT,PLT 189 10^3/uL (150-450); RED BLOOD CELL COUNT 4.31 10^6/uL (4.2-5.4); WHITE BLOOD CELL COUNT,WBC 8.5 10^3/uL (5.0-10.0)
[2025-06-22 13:45] LABS: A/G RATIO 1.2; ALANINE AMINOTRANSFERASE,ALT 458.0 U/L (14-59); ASPARTATE AMNIOTRANSFERASE,AST 100.0 U/L (15-37); BILIRUBIN TOTAL 0.5 mg/dL (0.2-1.0); BLOOD UREA NITROGEN,BUN 16.0 mg/dL (7-18); CARBON DIOXIDE,CO2 33.0 mmol/L (21-32); CHLORIDE,CL 100.0 mmol/L (98-107); CREATININE 0.87 mg/dL (0.55-1.02); EST CRCL DRUG DOSING (CG) 56.46 mL/min; ESTIMATED GFR 73.0 mL/min (>=60); GLUCOSE RANDOM 98.0 mg/dL (70-99); POTASSIUM,K 4.7 mmol/L (3.5-5.1); PROTEIN TOTAL,TP 7.4 g/dL (6.4-8.2); SODIUM,NA 140.0 mmol/L (136-145)
[2025-06-22] MEDS ORDERED: Sodium Chloride 0.9% 10 ML Syringe FLUSH PRN (14:07)
[2025-06-22] MEDS: diphenhydrAMINE 50 MG/ML SDV IVPUSH ONE (14:34)
[2025-06-22] MEDS: fentaNYL 100 MCG/2 ML SDV IVPUSH ONE (14:35)
[2025-06-22] MEDS: Dexamethasone 4 MG/ML SDV IVPUSH ONE (14:37)
[2025-06-22] MEDS: Lidocaine 2% Viscous Solution 15 ML UD TOP ONE (14:47)
[2025-06-22 15:15] VITALS: BP 171/86
== END 2025-06-22 15:41 | disposition home or self-care (01) ==
LOC: DL.ED 12:38
DX: G43.909 Migraine, unspecified, not intractable, without status migrainosus (principal); E86.0 Dehydration; E11.9 Type 2 diabetes mellitus without complications; I10 Essential (primary) hypertension; E78.00 Pure hypercholesterolemia, unspecified; Z90.89 Acquired absence of other organs; Z90.49 Acquired absence of other specified parts of digestive tract; Z79.84 Long term (current) use of oral hypoglycemic drugs; Z79.899 Other long term (current) drug therapy; Z88.0 Allergy status to penicillin; Z88.5 Allergy status to narcotic agent; Z88.2 Allergy status to sulfonamides; Z88.8 Allergy status to other drugs, medicaments and biological substances; Z88.6 Allergy status to analgesic agent
CPT/HCPCS: 36415; 64400; 70450; 80053; 83735; 84484; 85025; 96361; 96374; 96375; 99284; A9270; J1100; J1200; J2765; J3010; J7040

== ENCOUNTER 2025-07-10 15:26 | Emergency (ER) | payer MEDICARE, BC ==
[2025-07-10] MEDS: Lidocaine 2% with EPINEPHrine 1:200,000 20 ML SDV INJECT ONE (16:05)
[2025-07-10 16:31] VITALS: PULSE 66
[2025-07-10 17:20] VITALS: BP 151/88
== END 2025-07-10 17:15 | disposition home or self-care (01) ==
LOC: DL.ED 15:26
DX: G43.909 Migraine, unspecified, not intractable, without status migrainosus (principal); I10 Essential (primary) hypertension; E78.00 Pure hypercholesterolemia, unspecified; E11.9 Type 2 diabetes mellitus without complications; Z88.5 Allergy status to narcotic agent; Z88.8 Allergy status to other drugs, medicaments and biological substances; Z88.2 Allergy status to sulfonamides; Z79.84 Long term (current) use of oral hypoglycemic drugs; Z79.899 Other long term (current) drug therapy
CPT/HCPCS: 64405; 99283; 99283-25; J0665; J2004; Q0169